=== PATIENT | female | born 1930 | race Caucasian/White ===

== ENCOUNTER → 2017-02-09 | Outpatient (CLI) | payer OTHER | LOC: FIMAGING 14:15 | PROVIDERS: ATTEND Internal Medicine Hematology & Oncology | DX: Z12.31 Encounter for screening mammogram for malignant neoplasm of breast (principal); Z85.3 Personal history of malignant neoplasm of breast | CPT/HCPCS: G0202-52 ==

== ENCOUNTER → 2017-04-06 | Outpatient (CLI) | payer OTHER | LOC: BMCIMAGING 15:35 | PROVIDERS: ATTEND Internal Medicine Rheumatology | DX: S93.302A Unspecified subluxation of left foot, initial encounter (principal) ==

== ENCOUNTER 2017-09-21 10:57 | Inpatient (IN) | payer OTHER ==
--- NOTE | 2017-09-21 11:21 | CPEKG ---
Heart Rate: 60 RR Interval: 1000 P-R Interval: 216 QRSD Interval: 82 QT Interval: 424 QTC Interval: 424 QRS [place]: 32 T Wave [place]: 75 EKG Severity - ABNORMAL ECG - EKG Impression: ATRIAL-PACED RHYTHM EKG Impression: LEFT VENTRICULAR HYPERTROPHY EKG Impression: ANTERIOR Q WAVES, POSSIBLY DUE TO LVH Electronically Signed By: Jonathan Wilson 21-Sep-2017 15:23:47
[2017-09-21 11:27] LABS: PLATELET COUNT 247 10^3/uL (150-400)
--- NOTE | 2017-09-21 11:27 | EDPHY ---
H & P Time Seen by Provider: 09/21/17 11:26 HPI/ROS: Chief complaint. Chest pain This patient was seen by Dr. Banuelos and not by me (Jonathan Wilson) Constitutional: Initial Vital Signs Temperature (C) 36.9 C 09/21/17 11:02 Heart Rate 61 09/21/17 11:02 Respiratory Rate 18 09/21/17 11:02 Blood Pressure 158/66 H 09/21/17 11:02 O2 Sat (%) 96 09/21/17 11:02 O2 Delivery Mode Room Air Allergies/Adverse Reactions: No Known Allergies Allergy (Verified 09/21/17 12:24) Home Medications: Medication Instructions Recorded Aspirin [Aspirin 81mg (OTC)] 81 mg PO HS 05/06/13 Atorvastatin Calcium [Lipitor 10 10 mg PO DAILY 05/06/13 mg (RX)] Calcium Citrate W/Vit D [Citracal 315 mg PO BID 05/06/13 + D (OTC)] Metoprolol Succinate Xr [Toprol Xl 12.5 mg PO HS 05/06/13 25 mg (RX)] Clobetasol 0.05% [Temovate Cream 1 stiven TP DAILY PRN 09/21/17 (RX)] Diclofenac Sodium 1% [Voltaren Gel 1 stiven TP QID PRN 09/21/17 (*)] Herbals/Supplements -Info Only 1 ea PO DAILY 09/21/17 Ibuprofen [Motrin (*)] 200 mg PO BID 09/21/17 Multivitamins [Multivitamin (*)] 1 each PO DAILY 09/21/17 Medical Decision Making ED Course/Re-evaluation: CHIEF COMPLAINT: Pain in the back between the shoulder blades HISTORY OF PRESENT ILLNESS: 86-year-old female with a long history of heart rhythm issues who has never had a heart catheterization. She is presumably scheduled for heart catheterization. She was deciding whether not she would like to proceed and discussing with her daughter lives in [place]. Last night at about 3:00 a.m. she developed severe pain between her shoulder blades into her back. She also had some mild shortness of breath with that. She still having the pain although it is much more mild. She denies any shortness of breath nausea vomiting lightheadedness dizziness syncope or any other symptoms. She does have a paced rhythm as far she can tell her rhythm is not changed. She did call Dr. jessica villasenor office who sent him into the emergency department. REVIEW OF SYSTEMS: A 10 point review of systems was performed and is negative with the exception of the elements mentioned in the history of present illness. PHYSICAL EXAM: HR, BP, O2 Sat, RR. Temp noted General Appearance: Alert, well hydrated, appropriate, and non-toxic appearing. Head: Atraumatic without scalp tenderness or obvious injury Eyes: Pupils equal, round, reactive to light and accommodation, EOMI, no trauma , no injection. Ears: Clear bilaterally, no perforation, normal landmarks Nose: Atraumatic, no rhinorrhea, clear. Throat: There is no erythema or exudates, no lesions, normal tonsils, mucus membranes moist. Neck: Supple, 2+ carotid upstroke, nontender, no lymphadenopathy. Respiratory: No retractions, no distress, no wheezes, and no accessory muscle use. Lungs are clear to auscultation bilaterally. Cardiovascular: Regular rate and rhythm, no murmurs, rubs, or gallops. Bilateral carotid, radial, dorsalis pedis, and posterior tibial pulses intact. Good capillary refill all extremities. Gastrointestinal: Abdomen is soft, nontender, non-distended, no masses, no rebound, no guarding, no peritoneal signs. Musculoskeletal: Normal active ROM of all extremities, atraumatic. Neurological: Alert, appropriate, and interactive. The patient has normal DTRs and non-focal cranial nerves, motor, sensory, and cerebellar exam. Skin: No rashes, good turgor, no nodules on palpation. Past medical history: Atrial fibrillation, pacemaker, hypertension Past surgical history: Pacemaker placed Family history: Noncontributory Social history: , lives on her own, daughter is in [place], denies tobacco drug or alcohol use DIAGNOSTICS/PROCEDURES/CRITICAL CARE TIME: The 12 lead EKG was interpreted by myself. See hard copy and/or "tracemaster" electronic copy for interpretation. Atrial paced rhythm at 60 Study: PA and Lateral Chest X-ray Indication: Chest pain Results: After viewing the images myself on the PACS system. My interpretation of the images is: Atelectasis in left base. The radiologist interpretation is pending at the time of this dictation. DIFFERENTIAL DIAGNOSIS: The differential diagnosis for the patient's back pain included but was not limited to myocardial ischemia, pulmonary embolus, chest wall pain, pleural inflammation, and pulmonary infectious causes. MEDICAL DECISION MAKING: This patient is having pain between her shoulder blades. Her EKG is essentially nondiagnostic as it is an atrial paced EKG. Laboratory studies are pending. This patient is scheduled for heart catheterization and they are just deciding whether not they wanted to proceed. I will discuss this case with Dr. teixeira or coverage and admit to the hospitalist for ongoing pain. Both Dr. Abida Schmitt and Dr. santiago nixon of accepted care of this patient she has been given some nitroglycerin and we are discussing anticoagulation with Dr. Schmitt (Geovanny Banuelos) - Data Points Laboratory Results: Laboratory Results 09/21/17 10:57 09/21/17 10:57 Medications Given: Acetaminophen (Tylenol) 650 mg PO Q4HRS PRN PRN Reason: Pain, Mild/Fever, Can Take PO Stop: 03/20/18 12:14 Last Admin: 09/21/17 18:34 Dose: 650 mg Atorvastatin Calcium (Lipitor) 10 mg PO DAILY NEVIN Stop: 03/21/18 08:59 Last Admin: 09/22/17 08:20 Dose: 10 mg Enoxaparin Sodium (Lovenox) 40 mg SC DAILY NEVIN Stop: 03/21/18 08:59 Last Admin: 09/22/17 08:19 Dose: 40 mg Dextrose/Sodium Chloride (D5w 1/2 Ns) 1,000 mls @ 100 mls/hr IV CONT NEVIN Stop: 03/20/18 12:14 Last Admin: 09/21/17 13:13 Dose: 1,000 mls Metoprolol Succinate (Toprol Xl) 12.5 mg PO HS NEVIN Stop: 03/20/18 20:59 Last Admin: 09/21/17 21:40 Dose: 12.5 mg Miscellaneous Medication (Calcium Citrate W/Vit D [Citracal + D]) 315 mg PO BID NEVIN Stop: 03/20/18 20:59 Last Admin: 09/22/17 08:33 Dose: Not Given Multivitamins (Tab-A-Jessica) 1 each PO DAILY NEVIN Stop: 03/21/18 08:59 Last Admin: 09/22/17 08:20 Dose: 1 each Nitroglycerin (Nitrostat) 0.4 mg SL Q5M PRN PRN Reason: Chest Pain Stop: 03/20/18 12:36 Last Admin: 09/21/17 14:08 Dose: 0.4 mg Oxycodone/Acetaminophen (Percocet 5/325) 1 - 2 tab PO Q4HRS PRN PRN Reason: Pain, Severe Able to Take PO Stop: 10/01/17 17:36 Last Admin: 09/21/17 21:40 Dose: 1 tab Prasugrel (Effient) 5 mg PO DAILY [facility] Stop: 03/21/18 08:59 Last Admin: 09/22/17 08:20 Dose: 5 mg Discontinued Medications Aspirin Buffered (Aspirin Ec) 325 mg PO ONCALL ONE Stop: 09/21/17 14:11 Last Admin: 09/21/17 15:28 Dose: Not Given Diazepam (Valium) 5 mg PO ONCALL ONE Stop: 09/21/17 14:11 Last Admin: 09/21/17 15:28 Dose: Not Given Diphenhydramine HCl (Benadryl) 25 mg PO ONCALL ONE Stop: 09/21/17 14:11 Last Admin: 09/21/17 15:34 Dose: 25 mg Famotidine (Pepcid) 20 mg PO ONCALL ONE Stop: 09/21/17 14:11 Last Admin: 09/21/17 15:34 Dose: 20 mg Sodium Chloride (Ns) 1,000 mls @ 75 mls/hr IV CONT [facility] Stop: 09/22/17 07:04 Last Admin: 09/21/17 20:31 Dose: 1,000 mls Departure - Departure Disposition: [facility] Acute Clinical Impression: Acute coronary syndrome Condition: Fair
[2017-09-21] MEDS ORDERED: D5W 1/2 NS 1,000 ML IV SCH (12:15)
[2017-09-21] MEDS ORDERED: ONDANSETRON DISINTEGRATING 4 MG TAB PO PRN (12:15)
[2017-09-21] MEDS ORDERED: ONDANSETRON 4 MG/2 ML VIAL IVP PRN (12:15)
[2017-09-21] MEDS ORDERED: DICLOFENAC SODIUM 1% 100 GM GEL TP PRN (12:37)
[2017-09-21] MEDS ORDERED: CLOBETASOL 0.05% 15 GM CRTUBE TP PRN (12:37)
--- NOTE | 2017-09-21 12:55 | PDGENHP ---
History and Physical - Chief Complaint Acute back pain - History of Present Illness Primary fire assistant: Dr. Pepe Joe HPI: 86-year-old female presenting with acute back pain characterized as sharp , initially located in the lower back, migrating into the upper midback mid scapular area, with onset of symptoms at 3:30 a.m. and constant duration thereafter. Patient reports mild exacerbation by sitting upright as well as deep inspiration. She took a full-dose aspirin on the morning of this presentation but has not had any subsequent sublingual nitroglycerin. The patient denies ever experiencing similar chest discomfort, and she reports some associated shortness of breath this morning. She reports that her exercise tolerance has been somewhat reduced over the past 1 month, but she has not been experiencing any overt chest pain with exertion. She otherwise denies any URI symptoms, and endorses a chronic nonproductive cough History Information - Allergies/Home Medication List Allergies/Adverse Reactions: No Known Allergies Allergy (Verified 09/21/17 12:24) Home Medications: Aspirin [Aspirin 81mg (OTC)] 81 mg PO HS 05/06/13 [Last Taken 09/21/17] Atorvastatin Calcium [Lipitor 10 mg (RX)] 10 mg PO DAILY 05/06/13 [Last Taken ] Calcium Citrate W/Vit D [Citracal + D (OTC)] 315 mg PO BID 05/06/13 [Last Taken 09/21/17] Metoprolol Succinate Xr [Toprol Xl 25 mg (RX)] 12.5 mg PO HS 05/06/13 [Last Taken 09/20/17] Clobetasol 0.05% [Temovate Cream (RX)] 1 stiven TP DAILY PRN 09/21/17 [Last Taken Unknown] Diclofenac Sodium 1% [Voltaren Gel (*)] 1 stiven TP QID PRN 09/21/17 [Last Taken Unknown] Herbals/Supplements -Info Only 1 ea PO DAILY 09/21/17 [Last Taken Unknown] Ibuprofen [Motrin (*)] 200 mg PO BID 09/21/17 [Last Taken 09/21/17 08:30] Multivitamins [Multivitamin (*)] 1 each PO DAILY 09/21/17 [Last Taken 09/21/17] I have personally reviewed and updated: family history, medical history, social history, surgical history - Past Medical History Additional medical history: Moderate aortic insufficiency and back stenosis, currently being evaluated for TAVR. Hypertension. Diastolic dysfunction - Surgical History Additional surgical history: Permanent pacemaker for Mobitz type 2 in 2011. Left mastectomy with implant. Right femur ORIF in 2010 - Family History Additional family history: Father with myocardial infarction at age 70, no family history of venous thromboembolism - Social History Smoking Status: Former smoker (Room history) Alcohol Use: Occasionally Drug Use: None Additional social history: Resides at [facility] Review of Systems Review of Systems: ROS: 10pt was reviewed & negative except for what was stated in HPI & below Cardiac: Reports: chest pain Respiratory: Reports: shortness of breath Physical Exam Physical Exam: Temp Pulse Resp BP Pulse Ox 36.9 C 66 18 119/63 95 09/21/17 11:02 09/21/17 12:00 09/21/17 12:00 09/21/17 12:00 09/21/17 12:00 Constitutional: no apparent distress, appears nourished, not in pain Eyes: PERRL, anicteric sclera, EOMI Ears, Nose, Mouth, Throat: hearing normal, ears appear normal, other (Tacky mucous membranes) Cardiovascular: systolic murmur (3/6 at the right sternal border), No irregularly irregular, No tachycardia, No edema Respiratory: reduced air movement (Poor inspiratory effort), inspiratory crackles (Left posterior base), No expiratory wheeze, No bronchial breath sounds Gastrointestinal: normoactive bowel sounds, soft, non-tender abdomen, no palpable masses, No distension Skin: other (No vesicular lesions or rash over the left anterior chest or left back) Musculoskeletal: other (No tenderness to palpation over the thoracic or cervical spine, full range of motion left shoulder without any pain, no tenderness to palpation of the left pectoralis muscle) Neurologic: AAOx3, sensation intact bilaterally, No weakness Psychiatric: interacting appropriately, not anxious, not encephalopathic, thought process linear Lab Data & Imaging Review 09/21/17 10:57 09/21/17 10:57 WBC 11.43 10^3/uL (3.80-9.50) H 09/21/17 10:57 RBC 4.37 10^6/uL (4.18-5.33) 09/21/17 10:57 Hgb 14.2 g/dL (12.6-16.3) 09/21/17 10:57 Hct 41.0 % (38.0-47.0) 09/21/17 10:57 MCV 93.8 fL (81.5-99.8) 09/21/17 10:57 MCH 32.5 pg (27.9-34.1) 09/21/17 10:57 MCHC 34.6 g/dL (32.4-36.7) 09/21/17 10:57 RDW 14.0 % (11.5-15.2) 09/21/17 10:57 Plt Count 247 10^3/uL (150-400) 09/21/17 10:57 MPV 9.5 fL (8.7-11.7) 09/21/17 10:57 Neut % (Auto) 81.3 % (39.3-74.2) H 09/21/17 10:57 Lymph % (Auto) 7.8 % (15.0-45.0) L 09/21/17 10:57 [place] % (Auto) 10.0 % (4.5-13.0) 09/21/17 10:57 Eos % (Auto) 0.3 % (0.6-7.6) L 09/21/17 10:57 Baso % (Auto) 0.3 % (0.3-1.7) 09/21/17 10:57 Nucleat RBC Rel Count 0.0 % (0.0-0.2) 09/21/17 10:57 Absolute Neuts (auto) 9.30 10^3/uL (1.70-6.50) H 09/21/17 10:57 Absolute Lymphs (auto) 0.89 10^3/uL (1.00-3.00) L 09/21/17 10:57 Absolute Monos (auto) 1.14 10^3/uL (0.30-0.80) H 09/21/17 10:57 Absolute Eos (auto) 0.03 10^3/uL (0.03-0.40) 09/21/17 10:57 Absolute Basos (auto) 0.04 10^3/uL (0.02-0.10) 09/21/17 10:57 Absolute Nucleated RBC 0.00 10^3/uL (0-0.01) 09/21/17 10:57 Immature Gran % 0.3 % (0.0-1.1) 09/21/17 10:57 Immature Gran # 0.03 10^3/uL (0.00-0.10) 09/21/17 10:57 Sodium 141 mEq/L (135-145) 09/21/17 10:57 Potassium 4.8 mEq/L (3.5-5.2) 09/21/17 10:57 Chloride 107 mEq/L (97-110) 09/21/17 10:57 Carbon Dioxide 20 mEq/l (22-31) L 09/21/17 10:57 Anion Gap 14 mEq/L (8-16) 09/21/17 10:57 BUN 23 mg/dL (7-23) 09/21/17 10:57 Creatinine 0.7 mg/dL (0.6-1.0) 09/21/17 10:57 Estimated GFR > 60 09/21/17 10:57 Glucose 115 mg/dL (70-100) H 09/21/17 10:57 Calcium 10.4 mg/dL (8.5-10.4) 09/21/17 10:57 Troponin I < 0.012 ng/mL (0.000-0.034) 09/21/17 10:57 Visualized and Interpreted Chest x-ray results: Yes Chest X-Ray results: other (Possible left lower lobe infiltrate) Visualized and Interpreted EKG results: Yes EKG Interpretation: Positive for: other (Paced rhythm) Assessment & Plan Assessment: 86-year-old female presents with acute back pain Plan: 1. Back pain. Acute, new problem this provider, further workup indicated. Possible etiologies include unstable angina versus acute pulmonary embolism verses pneumonia versus GERD. Given patient's leukocytosis I suspect that the patient has either onset angina or embolism or pneumonia. -reviewed outside records including 05/08/[address] Madelaine Moreno, reports that patient's echo had diastolic dysfunction, normal ejection fraction, moderate aortic insufficiency and aortic stenosis, mild mitral regurgitation, nuclear stress test with fixed anteroseptal defect but no ischemia -discussed with Dr. Geovanny Banuelos, he has discussed the case with Dr. Abida Schmitt , he reports to me that she liked the patient kept NPO for catheterization today -will discuss with Dr. Schmitt whether systemically anticoagulated patient for treatment of possible unstable angina -discussed with Dr. Geovanny Banuelos, I recommend to him that the patient received supple nitroglycerin at this time, the morphine that her pain is unrelieved -keep on a low rate IV fluids NPO -get D-dimer rule out pulmonary embolism -she has received full-dose aspirin today, has long-acting oral beta-manju for this evening, but can receive sooner if so desired by Cardiology-if all the above is unremarkable, then would recommend noncontrast CT of the chest to evaluate for left lower lobe pneumonia 2. Hypertension. Continue home beta-manju 3. Aortic stenosis and insufficiency. Will get cardiac catheterization today, evaluate given patient's consideration of TAVR Diet. NPO, IV fluids next prophylaxis. High risk patient, Lovenox 40 Code. Full per patient, daughter is MD UMANZOR Disposition. Anticipated discharge is 09/22, pending further workup as outlined above.
[2017-09-21] MEDS: ACETAMINOPHEN 325 MG TAB PO PRN ×2 (13:07→18:34)
[2017-09-21] MEDS: NITROGLYCERIN 0.4 MG BTL SL PRN ×2 (13:42→14:08)
[2017-09-21] MEDS ORDERED: FAMOTIDINE 20 MG TAB PO ONE (14:10)
[2017-09-21] MEDS ORDERED: diphenhydrAMINE 25 MG CAP PO ONE ×2 (14:10→15:31)
[2017-09-21] MEDS ORDERED: ASPIRIN EC 325 MG TAB PO ONE (14:10)
[2017-09-21] MEDS ORDERED: DIAZEPAM 5 MG TAB PO ONE (14:10)
[2017-09-21] MEDS ORDERED: TEMAZEPAM 15 MG CAP PO PRN (14:10)
[2017-09-21] MEDS ORDERED: NS 1,000 ML IV SCH ×2 (14:15→17:45)
--- NOTE | 2017-09-21 14:21 | PDPROPOC ---
Sedation Plan of Care Sedation Plan of Care: vital signs stable, mental status noted, patient educated of risks, benefits, alternatives, patient can tolerate sedation ASA Classification: ASA 2 Planned drugs: fentanyl, midazolam Mallampati Score: Class 2 Mallampati Reference Image: Patient passed 3-3-2 rule?: Yes
--- NOTE | 2017-09-21 14:21 | PDHPUP ---
History & Physical Update H&P update statement: This history and physical update is based on an assessment of the patient which was completed after admission or registration (within 24 hours), but prior to the surgery/procedure. H&P update: H&P reviewed & patient examined, no change in patient's condition since H&P completed
[2017-09-21] MEDS ORDERED: LIDOCAINE 1% 300 MG/30 ML SDV ONE (15:00)
[2017-09-21] MEDS ORDERED: IOPAMIDOL (ISOVUE-370) 150 ML BTL IV ONE ×2 (15:00→16:46)
[2017-09-21] MEDS ORDERED: fentaNYL 100 MCG/2 ML INJ ONE (15:00)
[2017-09-21] MEDS ORDERED: MIDAZOLAM 2 MG/2 ML VIAL ONE (15:00)
[2017-09-21 15:33] LABS: INR 0.96 (0.83-1.16)
--- NOTE | 2017-09-21 16:05 | ECHO ---
[email or web address] [address] Main: [phone] Fax: Transthoracic Echocardiogram Name: TREVER QUINN MR#: [id number] Study Date: 09/21/2017 Study Time: 02:55 PM Date of : 1930 Age: 86 year(s) Height: 152.4 cm (60 in.) Weight: 47.17 kg (104 lb.) BSA: 1.41 m2 Gender: Female Examination: Echo Indication: , CP Image Quality: Technically Difficult Contrast: Requested by: Abida Schmitt BP: 156 mmHg/82 mmHg Heart Rate: Rhythm: Pacemaker rhythm Indication: , CP Procedure Staff Vice President Of Nursing: Janae Taylor Reading Physician: Abida Schmitt Requesting Provider: Conclusions: Normal size left ventricle. Mild concentric LV hypertrophy. Normal global systolic LV function. EF is 76 %. No regional wall motion abnormality. Normal size right ventricle. Normal RV function. The left atrium is mildly dilated. Severe aortic valve calcification is present. Bright mobile echo noted on the aorta side of the non-coronary cusp. Moderate aortic valve regurgitation is present. Mean aortic valve gradient 61. Severe calcific aortic valve stenosis. Mild to moderate tricuspid valve regurgitation. Right ventricular systolic pressure measures 32mmHg. Mild pulmonic valve regurgitation is noted. Normal size aortic root measuring 2.5 cm. Normal size ascending aorta measuring 3.3 cm. Compared wt 04/02/2016 mean aortic valve gradients have increased Measurements: Chambers Valvular Assessment AV/MV Valvular Assessment TV/PV Normal Normal Normal Name Value Range Name Value Range Name Value Range Ao Estella (MM): 2.5 cm (2.2 cm-3.7 AV Vmax: 4.91 m/s (1 m/s-1.7 TR Vmax: 2.62 mm/s ( - ) cm) m/s) TR PGmax: 27 mmHg ( - ) IVSd (2D): 0.9 cm (0.6 cm-1.1 AV maxP mmHg ( - ) syst. PAP: 32 mmHg ( - ) cm) AV meanP mmHg ( - ) PV Vmax: 0.82 m/s (0.6 m/s-0.9 LVDd (2D): 3.4 cm (3.9 cm-5.3 LVOT Vmax: 1.03 m/s (0.7 m/s-1.1 m/s) cm) m/s) Patient: TREVER QUINN Study Date: 09/21/2017 Page 1 of 2 02:55 PM LVDs (2D): 2.0 cm (2.1 cm-4 LITO (Vmax): 0.5 cm2 ( - ) PV PGmax: 3 mmHg ( - ) cm) LITO (VTI): 0.6 cm ( - ) LVPWd (2D): 1.0 cm ( - ) AR (PHT): 479 ms ( - ) LVOTd 1.8 cm 1.8 cm mm MV E Vmax: 0.70 m/s ( - ) LVEF (MOD4): 76 % (>=55 %) MV A Vmax: 0.81 m/s ( - ) MV E/A: 0.86 ( - ) Continued Measurements: Chambers Valvular Assessment AV/MV Valvular Assessment TV/PV Name Value Name Value Name Value LADs Lon.1 cm MV DecTime: 225 m/s CVP (est.): 5 mmHg LA Area: 16.4 cm2 AR Vmax: 3.59 cm/s LA Volume: 48 ml LA Volume Index: 34.0 ml/m2 RA Area: 13.9 cm2 Additional Vessels Name Value Ao Ascendin.3 cm Findings: Left Ventricle: Normal size left ventricle. Mild concentric LV hypertrophy. Normal global systolic LV function. EF is 76 %. No regional wall motion abnormality. Right Ventricle: Normal size right ventricle. Normal RV function. Left Atrium: The left atrium is mildly dilated. Right Atrium: The right atrium is normal in size. Mitral Valve: There is mild thickening of the mitral valve leaflets. Trivial mitral valve regurgitation. No mitral stenosis is present. Aortic Valve: Cannot rule out bicuspid aortic valve. Severe aortic valve calcification is present. Bright mobile echo noted on the aorta side of the non-coronary cusp. Moderate aortic valve regurgitation is present. Mean aortic valve gradient 61. Severe calcific aortic valve stenosis. Tricuspid Valve: The tricuspid valve appears normal. Mild to moderate tricuspid valve regurgitation. Right ventricular systolic pressure measures 32mmHg. Pulmonic Valve: Pulmonary valve not well visualized. Mild pulmonic valve regurgitation is noted. Aorta: Normal size aortic root measuring 2.5 cm. Normal size ascending aorta measuring 3.3 cm. Pericardium: No pericardial effusion. (No Signature Object) Patient: TREVER QUINN Study Date: 09/21/2017 Page 2 of 2 02:55 PM [id number]
[2017-09-21] MEDS ORDERED: BIVALIRUDIN 250 MG/5 ML VIAL IV ONE (16:41)
--- NOTE | 2017-09-21 16:56 | PDDXCAT ---
Diagnostic Cath Note - . Date: 09/21/17 Infrastructure Architect: Oskar Indication: other (unstable angina. Pre TAVR) - Procedure Access: left groin Procedure: left heart catheterization, coronary angiography - Materials Left Heart Cath size: 6F Left Heart Cath materials: JL4.0, Elton's R - Findings-Left Heart Catheterization LM: long with minimal tapering at the bifurcation of the LAD and Lcx. No flow limiting stenosis. LAD: 2 large branching diagonals. The diagonal branches are free of significant disease. The mid LAD has an 80% stenosis LCX: small. No significant disease RCA: dominant. No significant disease LVEF: did not cross aortic valve due to known severe calcific - Findings-Right Heart Catheterization AO: 131/52 Complications: none Estimated blood loss: <50ml Closure method: manual pressure Assessment: Single vessel LAD disease in a patient with known severe . Plan: Interventional consult with Dr. Beasley for PCI of mid LAD Patient Problems: Problems Problem Status Onset Acute coronary syndrome Acute
[2017-09-21] MEDS ORDERED: NITROGLYCERIN 1,500 MCG/15 ML VIAL MISC ONE (17:05)
[2017-09-21] MEDS ORDERED: CLOPIDOGREL BISULFATE 75 MG TAB ONE (17:18)
[2017-09-21] MEDS ORDERED: ATROPINE SULFATE 1 MG/10 ML SYR IVP PRN (17:37)
[2017-09-21] MEDS ORDERED: PRASUGREL HCL 10 MG TAB PO ONE (17:37)
--- NOTE | 2017-09-21 17:54 | PDDXCAT ---
Diagnostic Cath Note - . Date: 09/21/17 Carton Stapler: Ramos - Procedure Access: left groin - Materials Left Heart Cath size: 6F Complications: None Estimated blood loss: <50ml Closure method: manual pressure Intervention: Please refer to the diagnostic cardiac cath report dictated by Dr. Abida Schmitt. Briefly, the patient is an 86-year-old woman with severe aortic stenosis who is being evaluated for TAVR. She presented with back discomfort concerning for an anginal equivalent. Diagnostic cardiac catheterization demonstrated that her only significant coronary lesion was an 80% stenosis in the mid left anterior descending. Based on her anatomy and plans for an upcoming TAVR, the decision was made to perform percutaneous coronary intervention. The patient received intravenous Angiomax. A 6 [place] CLS 3.5 guide catheter was advanced to the left main. An Intuition guidewire was advanced to the apical portion of the left anterior descending. Predilatation of the target lesion was performed using a 2.25 x 12 mm Emerge balloon. A 2.5 x 16 mm Synergy stent was advanced into position and deployed at high pressure. Subsequent angiograms demonstrate stenosis/haziness at each end of the stent. Intracoronary nitroglycerin was given. Subsequent angiography demonstrated that the distal stent end looked good. However, there was a napkin ring type stenosis at the proximal end of the stented segment. Therefore, a 2.75 x 8 mm Synergy stent was advanced into position and was deployed proximal to the first stent with slight overlap. An additional high pressure inflation was performed at the overlap segment. Subsequent angiography demonstrated that the stented segment had 0% residual stenosis. There was some haziness at the proximal stent end. Therefore postdilatation was performed at the proximal end of the stented segment using a 3.0 x 8 mm .NC Emerge balloon. Final angiograms demonstrated 0% residual stenosis with minimla haziness at the proximal stent end. The decision was made to terminate the procedure at this point where as working any further proximally could jeopardize a very large bifurcated diagonal branch. Patient Problems: Problems Problem Status Onset Acute coronary syndrome Acute
--- NOTE | 2017-09-21 18:27 | CPEKG ---
Heart Rate: 70 RR Interval: 857 P-R Interval: 204 QRSD Interval: 86 QT Interval: 404 QTC Interval: 436 P [place]: 86 QRS [place]: 38 T Wave [place]: 46 EKG Severity - ABNORMAL ECG - EKG Impression: SINUS RHYTHM EKG Impression: FIRST DEGREE AV BLOCK EKG Impression: LEFT VENTRICULAR HYPERTROPHY EKG Impression: COMPARED WITH 09/21/2017 AT 11:19, A PACING NOW ABSENT Electronically Signed By: Abida Schmitt 21-Sep-2017 19:50:08
--- NOTE | 2017-09-21 20:19 | GCON ---
[f rep st] CONSULTATION DATE OF CONSULTATION: 09/21/2017 PRIMARY CARDIOLOGISTS: Dr. Pepe Joe and Dr. Duc Schmidt. CHIEF COMPLAINT: Chest pain. HISTORY OF PRESENT ILLNESS: We were asked by Dr. Salazar to visit with the patient. The patient is a pleasant 86-year-old female with valvular heart disease. She does have severe aortic valvular steno sis as well as moderate aortic regurgitation based on 2016 echo. Other history includes paroxysmal a trial flutter, paroxysmal atrial fibrillation for which she has declined systemic anticoagulation, pe rmanent pacemaker, kzw-hjws-ibdtmmzi coronary disease on the basis of an angiogram in 2008, rheumatoi d arthritis, systemic hypertension. She has recently seen Dr. Joe, Dr. Schmidt, and Dr. New for further evaluation and management of her aortic stenosis and decreased exercise tolerance. She has been turned down by Dr. New for s urgical aortic valve replacement and the plan was to proceed with diagnostic coronary angiogram and u ltimately transaortic valve replacement with Dr. Schmidt. The patient woke at 3 this morning with middle back and mid and upper back chest discomfort unlike an ything she has ever had before. This was somewhat pleuritic in nature. She did not feel short of br eath, per se. She did not have syncope or palpitations. She has not had problems with lower extremi ty edema, paroxysmal nocturnal dyspnea, or orthopnea. She does corroborate the fact that she has had a decline in exercise tolerance, having to stop more frequently on her usual walks due to fatigue an d dyspnea. Because of her upper back/interscapular discomfort, she presented to the ER. First troponin is negat catherine. EKG shows LVH without significant ischemic changes. She received 1 sublingual nitroglycerin wi th improvement. She is now admitted for observation. REVIEW OF SYSTEMS: A full 10-point Review of Systems performed is negative except that which is outl ined in History of Present Illness. ALLERGIES: No known drug allergies. PAST MEDICAL HISTORY: 1. Valvular heart disease. 2. Permanent pacemaker. 3. Paroxysmal atrial arrhythmias for which she has declined anticoagulation. 4. Oac-jkqp-qpztwfmg coronary disease. 5. Hypertension. 6. Rheumatoid arthritis. 7. History of left mastectomy/left breast implant/XRT to left chest. 8. Status post right femur fracture with ORIF. 9. dyslipidemia. OUTPATIENT MEDICATIONS: Atorvastatin 10 mg daily, metoprolol tartrate 12.5 mg once daily, aspirin 81 mg daily, and Tylenol. SOCIAL HISTORY: The patient lives in the [facility]. Her daughter and son are involved in her care. She is a past cigarette smoker. FAMILY HISTORY: Not applicable to current case. PHYSICAL EXAM: VITAL SIGNS: Blood pressure is 156/52, heart rate 66, oxygen saturation 95% on room air. She is afebrile. GENERAL: Well-appearing, but somewhat frail older female in no acute distres s. HEENT: Sclerae clear and free of jaundice. Mucous membranes moist. CARDIOVASCULAR: JVP is less than 10. Carotids are equal and 2+ bilaterally with radiated murmur to the neck. Regular rate and rhythm with a 3/6 mid-to-late peaking systolic ejection murmur heard throughout the precordium. LUNG S: Mild rales at the left base. Otherwise, lungs are clear without wheezes or rhonchi. ABDOMEN: S oft, nontender, nondistended without bruits, masses, or hepatosplenomegaly. EXTREMITIES: Warm and w ell perfused without cyanosis, clubbing, or edema. NEURO: Alert and oriented x3 without gross focal neurologic deficits. LABORATORY DATA: White count 11.43 with a slight left shift. Hematocrit 41, and platelets are 247. D-dimer 0.53. Sodium 141, potassium 4.8, chloride 107, bicarb 20, BUN 22, creatinine 0.7, and glucos e is 115. First troponin is negative. EKG, reviewed by me: Atrial pacing. LVH with associated repolarization abnormality in the lateral l rashad. She also has minimal and diffuse concave ST-elevation in other leads, possibly suggestive of p ericarditis. Echocardiogram 2016, reviewed by me, shows normal LV systolic function without regional wall motion a bnormality. Severe aortic stenosis. Chest x-ray, reviewed by me: Left basilar opacity. This could be atelectasis or pneumonia. Cardiom egaly. Visualized portions of the ascending aorta appeared normal in caliber. Moderate hiatal herni a. ASSESSMENT/PLAN: 86-year-old female with known severe aortic stenosis, permanent pacemaker, intermit tent atrial arrhythmias, presents with upper back discomfort. This could be related to acute coronar y syndrome, musculoskeletal, less likely aortic pathology, pulmonary embolus is also possible. 1. Chest pain: Given her ongoing discomfort with some relief with nitroglycerin, we will proceed wi th diagnostic coronary angiogram with possible intervention. I have discussed this with Dr Travis Schmidt. If she does not have significant coronary disease, we will proceed likely tomorrow, depen ding on her contrast load with her pre-transcatheter aortic valve replacement CT scans, which would a lso evaluate for pulmonary embolism. I have checked an ESR and CRP in case this is viral pleurisy/pe ricarditis. Continue beta-manju and aspirin. 2. Valvular heart disease, severe aortic stenosis and moderate aortic regurgitation: Repeat echocar diogram. It has been over a year since her last study. She does appear to be a candidate for transc atheter aortic valve replacement and not a candidate for open surgical aortic valve replacement. 3. Paroxysmal atrial fibrillation and paroxysmal atrial flutter: She is currently paced. In the tpatient setting, she has previously declined systemic anticoagulation per Dr. Joe's notes. We can discuss further after her coronary angiogram and transcatheter aortic valve replacement. 4. Elevated white count and mildly abnormal chest x-ray: She has no subjective signs of pneumonia. Will follow closely. Defer to Hospital Medicine. At this point, she does not seem to require antib iotics. 5. Rheumatoid arthritis: This appears to be somewhat quiescent. Thank for allowing us to participate in the patient's care. Will follow with you. /[id number]/MODL
[2017-09-21] MEDS: OXYCODONE/APAP 5/325 TAB PO PRN ×2 (20:29→21:40)
[2017-09-21] MEDS: METOPROLOL SUCCINATE XR 25 MG TAB PO SCH (21:40)
[2017-09-21] MEDS: VIT D PO SCH (21:56)
[2017-09-21] MEDS: CALCIUM CITRATE PO SCH (21:56)
[2017-09-22 04:48] LABS: PLATELET COUNT 194 10^3/uL (150-400)
[2017-09-22] MEDS: ENOXAPARIN 40 MG/0.4 ML SYR SC SCH (08:19)
[2017-09-22] MEDS: PRASUGREL HCL 5 MG TAB PO SCH ×2 (08:20→12:04)
[2017-09-22] MEDS: ATORVASTATIN CALCIUM 10 MG TAB PO SCH (08:20)
[2017-09-22] MEDS: MULTIVITAMINS 1 EACH TAB PO SCH (08:20)
[2017-09-22] MEDS: VIT D PO SCH ×2 (08:33→21:41)
[2017-09-22] MEDS: CALCIUM CITRATE PO SCH ×2 (08:33→21:41)
[2017-09-22] MEDS ORDERED: Herbals/Supplements -Info Only PO SCH (09:00)
--- NOTE | 2017-09-22 09:04 | CPEKG ---
Heart Rate: 67 RR Interval: 896 P-R Interval: 198 QRSD Interval: 92 QT Interval: 516 QTC Interval: 545 P [place]: 225 QRS [place]: 25 T Wave [place]: 29 EKG Severity - ABNORMAL ECG - EKG Impression: ATRIAL-PACED COMPLEXES EKG Impression: LEFT VENTRICULAR HYPERTROPHY EKG Impression: ANTERIOR Q WAVES, POSSIBLY DUE TO LVH EKG Impression: PROLONGED QT INTERVAL EKG Impression: COMPARED WITH 09/21/2017 AT 18:25 ATRIAL PACING NOW PRESENT Electronically Signed By: Abida Schmitt 22-Sep-2017 18:15:36
--- NOTE | 2017-09-22 10:52 | PDCARPN ---
Cardiology Progress Note Assessment/Plan: Assessment/plan: 86-year-old female with severe aortic stenosis (mean gradient 61 mm of mercury) and moderate aortic regurgitation. She has permanent pacemaker, paroxysmal atrial arrhythmias, rheumatoid arthritis as well as hypertension dyslipidemia. She was admitted September 21 with interscapular discomfort concerning for angina. She underwent coronary angiography demonstrating 80% mid LAD lesion that was treated by Dr. Logan Beasley with to synergy stents. Echocardiogram confirms severe aortic stenosis, moderate aortic regurgitation, cvkd-nx-uiivnbva tricuspid regurgitation, normal biventricular systolic function. 1. Valvular heart disease: She has been evaluated for TAVR She is not a candidate for surgical aortic valve replacement, per Dr. Logan New. Follow up with Dr. Schmidt. She has had her pre procedure carotid ultrasound and will also get preTAVR CT scans today. 2. Coronary disease: Status post PCI of the LAD on September 21. She appears stable with resolution of what was likely an anginal equivalent. Left femoral arteriotomy site is stable. She has been started on Effient and aspirin. Continue statin and beta-manju. Plavix genetic testing was ordered. 3. Hypertension: Well controlled. Continue beta-manju 4. Permanent pacemaker and intermittent atrial fibrillation. She has previously declined systemic anticoagulation. This can be readdressed post TAVR 5. Non flow-limiting carotid disease seen on recent ultrasound. Continue aspirin statin. 6. Slightly elevated white count: This has improved since admission. No obvious infectious issues. This should be repeated as an outpatient. 7. Dyslipidemia: Continue statin. LDL is at goal. As mentioned above, she may be discharged home after her CT scans are completed. 09/22/17 11:10 Subjective: Sherley has had resolution of the upper back discomfort that brought her into the hospital. She has no chest pain. She denies dyspnea or lightheadedness. No significant left groin discomfort. Reviewed/Discussed With: hospitalist (Dr. Logan Beasley) Objective: Vital Signs (8 Hrs) Temp Pulse Resp BP Pulse Ox 09/22/17 07:14 36.6 C 73 18 123/48 H 93 09/22/17 04:34 36.6 C 66 16 117/53 L 96 Intake/Output (24 Hrs) 09/21/17 09/22/17 09/23/17 05:59 05:59 05:59 Intake Total 250 Output Total 200 Balance 50 Intake: Oral (ml) 250 IV Infused (ml) 0 Output: Urine (ml) 200 Toilet 200 Other: Weight 46.3 kg Number of Voids Bedpan 1 Toilet 1 No acute distress. JVP less than 10 cm of water. Regular rate and rhythm with harsh 2/6 late peaking systolic ejection murmur heard throughout the precordium Lungs clear auscultation without wheeze rhonchi or rales Extremities warm well perfused without cyanosis clubbing edema Left femoral arteriotomy site clean dry and intact. Expected small ecchymoses. No hematoma or bruit. Result Diagrams: 09/22/17 04:10 09/22/17 04:10 Telemetry: Sinus rhythm. Intermittent atrial pacing. PACs. Echocardiogram: reviewed, please see report signed by me ICD10 Worksheet Patient Problems: Problems Problem Status Onset Acute coronary syndrome Acute
[2017-09-22] MEDS ORDERED: IOPAMIDOL (ISOVUE 370) 100 ML BTL IV ONE (13:20)
[2017-09-22] MEDS: ACETAMINOPHEN 325 MG TAB PO PRN (15:52)
--- NOTE | 2017-09-22 16:32 | CPEKG ---
Heart Rate: 81 RR Interval: 741 QRSD Interval: 86 QT Interval: 364 QTC Interval: 423 QRS [place]: 11 T Wave [place]: -24 EKG Severity - ABNORMAL ECG - EKG Impression: AFIB/FLUT AND V-PACED COMPLEXES EKG Impression: ST DEPRESSION INFERIOR LEADS EKG Impression: ST ELEVATION, LATERAL LEADS. ACUTE ST ELEVATION DC EKG Impression: COMPARED WITH 09/22/2017, V PACING NOW SEEN. LATERAL ST ELEVATION NOW SEEN Electronically Signed By: Abida Schmitt 22-Sep-2017 18:14:19
--- NOTE | 2017-09-22 17:05 | ASMTCMCOM ---
CM Note CM Note Notes: 09/22/2017 Case Management Note Discussed in rounds. Pt plans for TAVR next week. Ambulates well. There were no case management d/c needs identified. Case Management anticipates pt to d/c independent with follow up as directed. Date Signed: 09/22/2017 05:04 PM Electronically Signed By:Chanel Henao RN
[2017-09-22] MEDS ORDERED: LIDOCAINE 1% 300 MG/30 ML SDV ONE (17:07)
[2017-09-22] MEDS ORDERED: IOPAMIDOL (ISOVUE-370) 150 ML BTL IV ONE ×3 (17:07→18:40)
[2017-09-22] MEDS ORDERED: fentaNYL 100 MCG/2 ML INJ ONE (17:07)
[2017-09-22] MEDS ORDERED: MIDAZOLAM 2 MG/2 ML VIAL ONE (17:07)
[2017-09-22] MEDS: NITROGLYCERIN 0.4 MG BTL SL PRN (17:11)
[2017-09-22] MEDS ORDERED: BIVALIRUDIN 250 MG/5 ML VIAL IV ONE (17:30)
[2017-09-22] MEDS ORDERED: NITROGLYCERIN 1,500 MCG/15 ML VIAL MISC ONE (17:30)
[2017-09-22] MEDS ORDERED: ABCIXIMAB 10 MG/5 ML VIAL ONE (18:30)
[2017-09-22] MEDS ORDERED: CLOPIDOGREL BISULFATE 75 MG TAB ONE (19:18)
[2017-09-22] MEDS ORDERED: NS 1,000 ML IV SCH (19:30)
--- NOTE | 2017-09-22 19:47 | HOSPPROG ---
Hospitalist Progress Note Assessment/Plan: Assessment: 86-year-old female presents with acute coronary syndrome and subsequent STEMI Plan: # Acute coronary syndrome. POA, evidenced by 80% LAD lesion w/ leukocytosis, back pain as presenting anginal sx - stented by Dr. Beasley 09/21 - placed on ASA/effient/bblocker # STEMI. Recurrent back pain and evolving shoulder pain as anginal sx w/ EKG demonstrating STEMI and trop 0.5 - d/w Dr. Rios/Oskar, initial stent placed to the Diag which was the likely cause of the STEMI, possibly 2/2 plaque embolizing off the Diag/LAD junction, then w/ mid LAD plaque embolization distal to the original LAD stents, requiring balloon and aggressive stenting w/ acute V. Fib and hypotension during procedure - adjusted to ASA/Plavix/bblocker - patient pain free post-procedure in ICU - d/w Dr. Alexandre, EKG rec if any back/shoulder/chest pain # Hypertension. Continue home beta-manju # Aortic stenosis and insufficiency. Will likely require some delay in TAVR given severity of above - staging CUS/CTA w/o remarkable findings Diet. IVF, adv when able to sit upright Prophylaxis. High risk patient, Lovenox 40 Code. Full per patient, daughter is MD POA Disposition. Anticipated discharge is uncertain, upgraded to inpatient admission status re: anticipated LOS > 48hrs for reasonable medical necessity including STEMI. 45 minutes of critical care time w/ this patient, at bedside, coordinating care w/ the above providers, addressing her critical illness which places her at high risk of mortality (STEMI). Subjective: patient w/ back pain, shoulder pain pre-cath / no pain post-cath Objective: Vital Signs Temp Pulse Resp BP Pulse Ox 36.3 C 75 16 96/63 L 96 09/22/17 15:48 09/22/17 17:00 09/22/17 15:48 09/22/17 17:00 09/22/17 17:00 Laboratory Results 09/22/17 04:10 09/22/17 04:10 09/21/17 09/22/17 09/23/17 05:59 05:59 05:59 Intake Total 250 495 Output Total 200 780 Balance 50 -285 PT 13.0 SEC (12.0-15.0) 01/22/18 14:55 INR 0.96 (0.83-1.16) 09/21/17 14:55 - Physical Exam Constitutional: no apparent distress, not in pain, No uncomfortable Cardiovascular: regular rate and rhythym, systolic murmur (III/ at RSB), No tachycardia, No edema Respiratory: no respiratory distress, no rales or rhonchi, clear to auscultation Neurologic: AAOx3 Psychiatric: interacting appropriately, not anxious, not encephalopathic, thought process linear ICD10 Worksheet Patient Problems: Problems Problem Status Onset Acute coronary syndrome Acute
[2017-09-22] MEDS ORDERED: ASPIRIN 81 MG CHEWABLE TAB PO SCH (21:00)
--- NOTE | 2017-09-22 21:29 | CPEKG ---
Heart Rate: 73 RR Interval: 822 P-R Interval: 192 QRSD Interval: 96 QT Interval: 404 QTC Interval: 446 P [place]: 77 QRS [place]: 58 T Wave [place]: 82 EKG Severity - ABNORMAL ECG - EKG Impression: ATRIAL-PACED COMPLEXES EKG Impression: ST ELEVATION, PROBABLE LATERAL INJURY EKG Impression: PROBABLE ANTEROSEPTAL INFARCT, AGE INDETERM EKG Impression: COMPARED WITH 09/22/2017 AT 16:30, DUANE IMPROVED Electronically Signed By: Abida Schmitt 23-Sep-2017 14:26:09
[2017-09-22] MEDS: METOPROLOL SUCCINATE XR 25 MG TAB PO SCH (22:15)
--- NOTE | 2017-09-23 04:45 | CPIP ---
[f rep st] INVASIVE CARDIAC PROCEDURE DATE OF PROCEDURE: 09/22/2017 PROCEDURE PERFORMED: 1. Coronary catheterization. 2. Selective coronary angiography. 3. Percutaneous transluminal coronary angioplasty and stent placement of the diagonal with a 2.5 x 1 6 Synergy drug-eluting stent. 4. Percutaneous transluminal coronary angioplasty and stent placement of the proximal LAD with a 3.0 x 16 Synergy drug-eluting stent. 5. Percutaneous transluminal coronary angioplasty and stent placement of the distal LAD with a 2.25 x 16 Synergy stent. Stenting of the mid LAD with a 2.25 x 16 Synergy drug-eluting stent and stenting of the most distal LAD with a 2.25 x 8 Synergy drug-eluting stent. COMPLICATIONS: LAD subacute stent thrombosis. INDICATION/APPROPRIATE USE CRITERIA: Lula presented with an acute lateral myocardial infarction which was an ST-elevation LA occurring just before she left the telemetry floor to go home from an e lective stent procedure of her LAD yesterday. PROCEDURE IN DETAIL: After implied consent was obtained because of the emergent nature of the proced ure and the patient's sedated status, she was taken emergently to the catheterization laboratory. I was asked to come and see the patient as I was on-call for intervention. A 6-Belgian sheath was place d using a micropuncture set after the groin was prepped and draped in sterile fashion. We then place d a 6-Belgian short sheath followed by 6-Belgian longer sheath given the tortuosity in the right iliac. A braided longer sheath was utilized. We then went up with a Tyler right diagnostic catheter to selectively inject the right coronary artery. The right coronary artery was noted to be dominant gi ving rise to the posterior descending as well as 2 posterolateral ventricular branches. There is dis shreya disease in the RCA proper prior to 1 of the PLV branches. This is estimated to be 50%-60% stenos ed. There is CACHORRO-3 flow in the vessel without evidence of collateral flow from right to left side. A 6-Belgian 3.25 EBU catheter was used for catheter support. Catheter was then advanced under direct fluoroscopic guidance, placed in the left coronary ostium. Diagnostic angiography documented widely patent LAD stents with some haziness in the distal margin of the stent as well as a possible lesion at the level of the LAD where the diagonal came off. The diagonal complex revealed a beta branch whi ch was completely occluded and was likely the culprit vessel. The patient was given Angiomax and a t herapeutic INR was documented. A 0.014 coronary wire was advanced across the lesion in question in t he diagonal and the vessel was subsequently ballooned and then stented with a 2.5 x 16 stent. Her ve ssels were extremely tortuous as is common in elderly women with a history of hypertension, coronary disease and aortic stenosis. We were able to open the vessel with flow into 1 of the 3 tributaries t hat went downstream from the diagonal. At this point, the patient had several salvos of nonsustained ventricular tachycardia and it was noted on angiography that the LAD distal to the last stent was oc cluded. It was difficult to place a wire into the LAD proper as the wire seemed to want to travel do wn the diagonal complex instead. We were able to get a wire down and get a wire distally into the ve ssel. A series of balloon and hudson wires were used to get the wire into the distal vessel. We were able to balloon it open and demonstrate that the wire was in the distal lumen. Unfortunately, attem pts to place additional wires was initially fraught with difficulty secondary to stenosis at the leve l of the LAD diagonal take-off and so we therefore stented the proximal LAD with a 3 x 16 Synergy brigida nt. We were then able to place a hudson wire into the distal LAD and document that the wire was in th e lumen, both proximally and distally. By pulling back 1 of the hudson wires and using a run-through extra floppy we were able to advance that floppy wire into the tortuosity in the distal LAD and the v essel was then stented secondarily with a 2.25 x 16 stent to straighten out a major curve in the bloo d vessel. There was an intervening segment that was hinging and green sticking, which required a 2nd 2.25 x 16 drug-eluting stent in the LAD, which brought the total number of LAD stents to 5. There w as still a residual kink in the vessel at the most distal stent, which was cut with a 2.25 x 8 Synerg y drug-eluting stent. There was evidence of a possible ostial compromise of the diagonal complex pro ximally. However, the patient's ST-segment elevation for the most part had resolved and after consul tation with Dr. Schmitt, we both felt it was most reasonable to stop the procedure as the patient was ch est pain free, and was having no residual back or shoulder pain. FINAL IMPRESSION: Successful balloon angioplasty and stent implantation for lateral wall LA related to LAD and subsequent repair of subacute stent thrombosis of a tortuous LAD with overlapping and mid to distal stents as well as a proximal LAD stent with partial compromise of the diagonal complex take off, but CACHORRO-3 flow into at least 1 branch of the diagonal and to the distal LAD postprocedure. Copy requested to: Primary Care Physician /[id number]/MODL
[2017-09-23 04:48] LABS: PLATELET COUNT 228 10^3/uL (150-400)
[2017-09-23 05:25] LABS: INR 1.03 (0.83-1.16); PROTIME(PATIENT) 13.7 SEC (12.0-15.0)
--- NOTE | 2017-09-23 08:44 | CPEKG ---
Heart Rate: 81 RR Interval: 741 P-R Interval: 180 QRSD Interval: 88 QT Interval: 380 QTC Interval: 441 P Alpha: 72 QRS Alpha: 40 T Wave Alpha: 52 EKG Severity - ABNORMAL ECG - EKG Impression: SINUS RHYTHM EKG Impression: ST ELEVATION, PROBABLE LATERAL INJURY EKG Impression: CONSIDER ANTEROSEPTAL INFARCT EKG Impression: COMPARED WITH 09/22/2017 AT 21:27, LATERAL DUANE PERSIST Electronically Signed By: Abida Schmitt 23-Sep-2017 14:25:31
--- NOTE | 2017-09-23 09:05 | PDMN ---
Medical Necessity Medical necessity: Change to IP, as of 09/22/17, per MD; los >2 mn for ongoing management of acute coronary syndrome & subsequent STEMI; admit for further workup/monitoring & surgical intervention; hx moderate aortic insufficiency ( currently being evaluated for TAVR), htn, diastolic dysfunction; per progress note & order 09/22/17
[2017-09-23] MEDS ORDERED: BISACODYL 10 MG SUPP PR PRN (09:26)
[2017-09-23] MEDS ORDERED: POLYETHYLENE GLYCOL 3350 17 GM PKT PO PRN (09:26)
[2017-09-23] MEDS ORDERED: MAGNESIUM HYDROXIDE 30 ML UDCUP PO PRN (09:26)
[2017-09-23] MEDS ORDERED: LACTULOSE 20 GM/30 ML UDCUP PO PRN (09:26)
[2017-09-23] MEDS: ENOXAPARIN 40 MG/0.4 ML SYR SC SCH (09:45)
--- NOTE | 2017-09-23 09:45 | PDCARPN ---
Cardiology Progress Note Assessment/Plan: Assessment/plan: 86-year-old female with severe aortic stenosis (mean gradient 61 mm of mercury) and moderate aortic regurgitation. She has a permanent pacemaker, paroxysmal atrial arrhythmias, rheumatoid arthritis as well as hypertension and dyslipidemia. She was admitted September 21 with interscapular discomfort concerning for angina. She underwent coronary angiography demonstrating 80% mid LAD lesion that was treated by Dr. Logan Beasley with two Synergy stents. Echocardiogram confirms severe aortic stenosis, moderate aortic regurgitation, [id number] tricuspid regurgitation, normal biventricular systolic function. On 09/22 she developed chest and left arm pain with evidence of lateral DUANE. Taken emergently to lab coordinator by Dr. Rios. D1 was thrombosed. This was partially intervened upon but she had LAD compromise and required multiple additional stents to the LAD. 1. Valvular heart disease: She has been evaluated for TAVR She is not a candidate for surgical aortic valve replacement, per Dr. Logan New. At this point, TAVR on hold due to STEMI. Follow up with Dr. Schmidt. She has had her pre procedure carotid ultrasound preTAVR CT scans today. 2. Coronary disease: Status post PCI of the LAD on September 21 and as well as intervention to thrombosed D1 on 09/22. She is on DAPT with ASA 325 and Plavix 75. Continue statin and beta-manju. Plavix genetic testing was ordered. 3. Hypertension: Well controlled. Continue beta-manju 4. Permanent pacemaker and intermittent atrial fibrillation. She has previously declined systemic anticoagulation. This can be readdressed as outpatient and is now complicated by the need for residential DAPT. 5. Non flow-limiting carotid disease seen on recent ultrasound. Continue aspirin and statin. 6. Slightly elevated white count: No obvious infectious issues. This should be repeated as an outpatient. 7. Dyslipidemia: Continue statin. LDL is at goal. 09/23/17 09:53 Subjective: Lula feels nauseated. She does not have the same chest/shoulder or back pain that she had prior to her cath procedures. Reviewed/Discussed With: multidisciplinary team, other (Dr. Schmidt. Dr. Beasley) Objective: Vital Signs (8 Hrs) Temp Pulse Resp BP Pulse Ox 09/23/17 09:00 83 21 H 97/74 L 91 L 09/23/17 08:00 36.4 C 87 20 124/65 H 91 L 09/23/17 07:00 84 20 125/62 H 94 09/23/17 06:00 82 18 106/66 93 09/23/17 05:00 81 24 H 127/60 H 97 09/23/17 04:38 37.1 C 77 24 H 110/77 98 Intake/Output (24 Hrs) 09/22/17 09/23/17 09/24/17 05:59 05:59 05:59 Intake Total 1025 Output Total 275 Balance 750 Intake: Oral (ml) 300 IV Intake (ml) 725 Output: Urine (ml) 275 Bedpan 275 Other: Weight 46.3 kg Number of Voids Bedpan 3 NAD JVP <10. RRR. Harsh II/ mid to late MICKIE throughout the precordium LUngs CTAB Bilateral groins ecchymoses without hematoma or bruit No edema. 2+ dp bilaterally Result Diagrams: 09/23/17 04:30 09/23/17 04:30 EKG: reviewed: NSR, lateral DUANE consistent with evolving STEMI Telemetry: SR with intermittent A and V pacing ICD10 Worksheet Patient Problems: Problems Problem Status Onset Acute coronary syndrome Acute
[2017-09-23] MEDS: ASPIRIN EC 325 MG TAB PO SCH (09:52)
[2017-09-23] MEDS: CLOPIDOGREL BISULFATE 75 MG TAB PO SCH (09:53)
[2017-09-23] MEDS: ATORVASTATIN CALCIUM 10 MG TAB PO SCH (09:54)
[2017-09-23] MEDS: VIT D PO SCH (09:55)
[2017-09-23] MEDS: MULTIVITAMINS 1 EACH TAB PO SCH (09:55)
[2017-09-23] MEDS: CALCIUM CITRATE PO SCH (09:55)
[2017-09-23] MEDS: SENNOSIDES/DOCUSATE SODIUM TAB PO SCH ×2 (09:57→21:01)
[2017-09-23] MEDS ORDERED: PROMETHAZINE HCL 25 MG/ML INJ IVP PRN (10:04)
[2017-09-23] MEDS ORDERED: PROMETHAZINE HCL 25 MG TAB PO PRN (10:04)
[2017-09-23] MEDS ORDERED: METOCLOPRAMIDE 10 MG/2 ML VIAL IVP PRN (10:05)
[2017-09-23] MEDS ORDERED: METOCLOPRAMIDE 10 MG TAB PO PRN (10:05)
[2017-09-23] MEDS: ACETAMINOPHEN 325 MG TAB PO PRN ×2 (11:50→16:43)
[2017-09-23 13:54] LABS: CREATINE KINASE 3020 IU/L (0-156)
--- NOTE | 2017-09-23 14:45 | CPEKG ---
Heart Rate: 86 RR Interval: 698 P-R Interval: 192 QRSD Interval: 84 QT Interval: 424 QTC Interval: 508 P [place]: 71 QRS [place]: 36 T Wave [place]: -88 EKG Severity - ABNORMAL ECG - EKG Impression: SINUS RHYTHM EKG Impression: LOW VOLTAGE IN FRONTAL LEADS EKG Impression: CONSIDER ANTEROSEPTAL INFARCT EKG Impression: NONSPECIFIC T ABNORMALITIES, LATERAL LEADS EKG Impression: ST ELEVATION, LATERAL LEADS. CHANGES CONSISTENT WITH EVOLVING LATERAL ST EKG Impression: ELEVATION PR EKG Impression: PROLONGED QT INTERVAL EKG Impression: COMPARED WITH 09/23/2017 AT 8:42 A.M., CHANGES CONSISTENT WITH EVOLVING LATERAL EKG Impression: ST ELEVATION PR Electronically Signed By: Abida Schmitt 24-Sep-2017 13:37:40
--- NOTE | 2017-09-23 16:43 | HOSPPROG ---
Hospitalist Progress Note Assessment/Plan: Assessment: 86-year-old female presents with acute coronary syndrome and subsequent STEMI Plan: # Acute coronary syndrome. POA, evidenced by 80% LAD lesion w/ leukocytosis, back pain as presenting anginal sx - stented by Dr. Beasley 09/21 - initially placed on ASA/effient/bblocker, adjusted to ASA 325/plavix s/p STEMI by Dr. Rios # STEMI. Recurrent back pain and evolving shoulder pain as anginal sx w/ EKG demonstrating STEMI 09/22, taken to mill laborer where D1 was stented and was likely culprit, but then experienced distal thrombosis in LAD likely from unstable plaque at the LAD origin and then sinuous vessel distally, required numerous PCI balloon/stents 09/22 PM - patient w/ recurrent back pain 09/23 PM, repeating EKG now to monitor for any recurrent ST seg elevations/depression and repeating trop now to establish baseline (which we anticipate will be elevated from STEMI last night), so that we can use it to help us interpret any ongoing pain tonight/tomorrow - will cont serial EKG in AM, trop this PM and in AM - cont on tele and place on supplemental o2 - d/w Dr. Schmitt, will give SLN now and gauge effect, place on nitro paste if seems to benefit - cont on ASA/plavix/statin/bblocker # Hypertension. Continue home beta-manju # Aortic stenosis and insufficiency. Will likely require some delay in TAVR given severity of above - staging CUS/CTA w/o remarkable findings # Suspected atelectasis. IS, place on o2 # Nausea. Unclear etiology, patient was symptomatic yesterday prior to STEMI and again today, treating supportively w/ anti-emetics but also evaluating for angina as above - cont on IVF this evening given contrast load yesterday and poor oral intake today Diet. IVF, cardiac Prophylaxis. High risk patient, Lovenox 40 Code. Full per patient, daughter is MD UMANZOR Disposition. Anticipated discharge is uncertain, upgraded to inpatient admission status re: anticipated LOS > 48hrs for reasonable medical necessity including STEMI. 40 minutes of critical care time w/ this patient, at bedside, coordinating care w/ the above providers and family, addressing her critical illness which places her at high risk of mortality (STEMI). Subjective: patient w/ recurrent back pain, ongoing nausea Objective: Vital Signs Temp Pulse Resp BP Pulse Ox 36.3 C 89 15 125/62 H 90 L 09/23/17 15:54 09/23/17 15:54 09/23/17 15:54 09/23/17 15:54 09/23/17 15:54 Laboratory Results 09/23/17 04:30 09/23/17 04:30 09/22/17 09/23/17 09/24/17 05:59 05:59 05:59 Intake Total 1025 Output Total 275 Balance 750 PT 13.7 SEC (12.0-15.0) 09/23/17 04:30 INR 1.03 (0.83-1.16) 09/23/17 04:30 - Physical Exam Constitutional: uncomfortable, No not in pain (mild in back) Ears, Nose, Mouth, Throat: moist mucous membranes Cardiovascular: regular rate and rhythym, no murmur, rub, or gallop, No edema Respiratory: no respiratory distress, no rales or rhonchi, clear to auscultation Gastrointestinal: normoactive bowel sounds, soft, non-tender abdomen, no palpable masses Musculoskeletal: other (no tendernes along thoracic paraspinal muscles, full ROM L shoulder w/o pain elicited) Neurologic: AAOx3 Psychiatric: interacting appropriately, not anxious, not encephalopathic, thought process linear ICD10 Worksheet Patient Problems: Problems Problem Status Onset Acute coronary syndrome Acute
[2017-09-23] MEDS: NITROGLYCERIN 0.4 MG BTL SL PRN (16:45)
--- NOTE | 2017-09-23 16:45 | CPEKG ---
Heart Rate: 84 RR Interval: 714 P-R Interval: 196 QRSD Interval: 86 QT Interval: 416 QTC Interval: 492 P [place]: 72 QRS [place]: 85 T Wave [place]: -83 EKG Severity - ABNORMAL ECG - EKG Impression: SINUS RHYTHM EKG Impression: LOW VOLTAGE WITH RIGHT AXIS DEVIATION EKG Impression: BORDERLINE R WAVE PROGRESSION, ANTERIOR LEADS EKG Impression: ABNORMAL T, CONSIDER ISCHEMIA, LATERAL LEADS EKG Impression: BORDERLINE ST ELEVATION, LATERAL LEADS EKG Impression: BORDERLINE PROLONGED QT INTERVAL EKG Impression: COMPARED WITH 09/23/2017, CHANGES CONSISTENT WITH EVOLVING LATERAL WY ARE SEEN. EKG Impression: NO NEW ISCHEMIA Electronically Signed By: Abida Schmitt 23-Sep-2017 16:54:02
[2017-09-23] MEDS ORDERED: D5W 1/2 NS 1,000 ML IV SCH (17:00)
--- NOTE | 2017-09-23 19:58 | ECHO ---
[email or web address] [address] Main: [phone] Fax: [email or web address] Echocardiogram Name: TREVER QUINN MR#: [id number] Study Date: 09/23/2017 Study Time: 06:24 PM Date of : 1930 Age: 86 year(s) Height: 152.4 cm (60 in.) Weight: 46.27 kg (102 lb.) BSA: 1.4 m2 Gender: Female Examination: Echo Indication: Chest Pain, Post Stents, Pacemaker, Implants Image Quality: Contrast: Requested by: Abida Schmitt BP: 96 mmHg/61 mmHg Heart Rate: Rhythm: Pacemaker rhythm Indication: Chest Pain, Post Stents, Pacemaker, Implants Procedure Staff Acct Exec: Benny Mejia Reading Physician: Abida Schmitt Requesting Provider: Toni Salazar Conclusions: Normal size left ventricle. The ejection fraction is estimated to be 35-40 %. There is mid to distal anteroseptal hypokinesis, mid to distal anterolateral hypokinesis and apical hypokinesis.. Normal size right ventricle. Normal RV function. There is a pacemaker lead noted in the right ventricle. The left atrium is severely dilated. Mild mitral valve regurgitation is present. Moderate aortic valve regurgitation is present. The Ao mean, max gradient is 39/52 mmHg. The AO velocity most likely underestimated due to LV function.. Moderate tricuspid regurgitation is present. The pulmonary artery pressure is mildly increased. Compared with 09/21/2017 LV systolic function is now mild to moderately decreased and regional wall motion abnormalities are new. Measurements: Chambers Valvular Assessment AV/MV Valvular Assessment TV/PV Normal Normal Normal Name Value Range Name Value Range Name Value Range Ao Estella (MM): 2.6 cm (2.2 cm-3.7 AV Vmax: 3.62 m/s (1 m/s-1.7 TR Vmax: 3.18 mm/s ( - ) cm) m/s) TR PGmax: 40 mmHg ( - ) IVSd (2D): 0.9 cm (0.6 cm-1.1 AV maxP mmHg ( - ) syst. PAP: 45 mmHg ( - ) cm) AV meanP mmHg ( - ) PV Vmax: 1.25 m/s (0.6 m/s-0.9 LVDd (2D): 3.4 cm (3.9 cm-5.3 LVOT Vmax: 0.87 m/s (0.7 m/s-1.1 m/s) cm) m/s) PV PGmax: 6 mmHg ( - ) LVDs (2D): 2.6 cm (2.1 cm-4 LITO (Vmax): 0.5 cm2 ( - ) cm) LITO (VTI): 0.6 cm ( - ) LVPWd (2D): 1.0 cm ( - ) AR (PHT): 374 ms ( - ) Patient: TREVER QUINN Study Date: 09/23/2017 Page 1 of 2 06:24 PM LVOTd 1.7 cm 1.7 cm mm MV E Vmax: 0.89 m/s ( - ) LVEF (BP): 36 % (>=55 %) MV A Vmax: 0.46 m/s ( - ) EF Range: 35-40 % MV E/A: 1.93 ( - ) MV meanP mmHg ( - ) MVA (Vmax): 2.2 m/s ( - ) Continued Measurements: Chambers Valvular Assessment AV/MV Valvular Assessment TV/PV Name Value Name Value Name Value LADs Lon.2 cm MV VTI: 20.60 cm CVP (est.): 5 mmHg LA Area: 18.4 cm2 AR Vmax: 3.12 cm/s LA Volume: 48 ml AR VTI: 79.3 cm LA Volume Index: 34.3 ml/m2 Findings: Left Ventricle: Normal size left ventricle. The ejection fraction is estimated to be 35-40 %. There is mid to distal anteroseptal hypokinesis, mid to distal anterolateral hypokinesis and apical hypokinesis.. Right Ventricle: Normal size right ventricle. Normal RV function. There is a pacemaker lead noted in the right ventricle. Left Atrium: The left atrium is severely dilated. Right Atrium: The right atrium is mildly dilated. Mitral Valve: Mild mitral valve regurgitation is present. MR may be underestimated due to LV function.. Aortic Valve: Severe aortic valve calcification is present. Moderate aortic valve regurgitation is present. The Ao mean, max gradient is 39/52 mmHg. The AO velocity most likely underestimated due to LV function.. Tricuspid Valve: Moderate tricuspid regurgitation is present. The pulmonary artery pressure is mildly increased. Pulmonic Valve: The pulmonic valve is normal in appearance and function. Aorta: There is mild to moderate descending AO calcification.. Pericardium: No pericardial effusion. (No Signature Object) Patient: TREVER QUINN Study Date: 09/23/2017 Page 2 of 2 06:24 PM [id number]
[2017-09-23] MEDS ORDERED: FUROSEMIDE 20 MG/2 ML VIAL IVP ONE (20:00)
[2017-09-23] MEDS: METOPROLOL SUCCINATE XR 25 MG TAB PO SCH (20:59)
[2017-09-24] MEDS: CALCIUM CARB W/VIT D 500 MG TAB PO SCH ×3 (00:24→20:15)
[2017-09-24 08:43] LABS: PLATELET COUNT 196 10^3/uL (150-400)
--- NOTE | 2017-09-24 09:03 | CPEKG ---
Heart Rate: 93 RR Interval: 645 P-R Interval: 182 QRSD Interval: 84 QT Interval: 392 QTC Interval: 488 P [place]: 0 QRS [place]: 76 T Wave [place]: -82 EKG Severity - ABNORMAL ECG - EKG Impression: SINUS RHYTHM EKG Impression: ST ELEVATION, PROBABLE LATERAL INJURY ; CHANGES CONSISTENT WITH EVOLVING EKG Impression: LATERAL ST ELEVATION PR EKG Impression: BORDERLINE T ABNORMALITIES, INFERIOR LEADS EKG Impression: BORDERLINE PROLONGED QT INTERVAL EKG Impression: COMPARED WITH 09/23/2017 AT 4:43 P.M., NO SIGNIFICANT CHANGE Electronically Signed By: Abida Schmitt 24-Sep-2017 13:33:45
[2017-09-24 09:08] LABS: CREATINE KINASE 1215 IU/L (0-156)
[2017-09-24] MEDS: ATORVASTATIN CALCIUM 10 MG TAB PO SCH (10:05)
[2017-09-24] MEDS: ENOXAPARIN 40 MG/0.4 ML SYR SC SCH (10:05)
[2017-09-24] MEDS: CLOPIDOGREL BISULFATE 75 MG TAB PO SCH (10:05)
[2017-09-24] MEDS: SENNOSIDES/DOCUSATE SODIUM TAB PO SCH ×2 (10:06→22:45)
[2017-09-24] MEDS: ASPIRIN EC 325 MG TAB PO SCH (10:06)
[2017-09-24] MEDS: MULTIVITAMINS 1 EACH TAB PO SCH (10:06)
--- NOTE | 2017-09-24 11:07 | PDCARPN ---
Cardiology Progress Note Assessment/Plan: Assessment/plan: 86-year-old female with severe aortic stenosis (mean gradient 61 mm of mercury) and moderate aortic regurgitation. She has a permanent pacemaker, paroxysmal atrial arrhythmias, rheumatoid arthritis as well as hypertension and dyslipidemia. She was admitted September 21 with interscapular discomfort concerning for angina. She underwent coronary angiography demonstrating 80% mid LAD lesion that was treated by Dr. Logan Beasley with two Synergy stents. On 09/22 she developed chest and left arm pain with evidence of lateral DUANE. Taken emergently to laborer egg producing farm by Dr. Rios. D1 was thrombosed. This was partially intervened upon but she had LAD compromise and required multiple additional stents to the LAD. Peak trop 129. Decrement in LVEF to 35-40% 1. Valvular heart disease: She has been evaluated for TAVR She is not a candidate for surgical aortic valve replacement, per Dr. Logan New. At this point, TAVR on hold due to STEMI. Follow up with Dr. Schmidt. She has had her pre procedure carotid ultrasound preTAVR CT scans today. 2. Coronary disease: Status post PCI of the LAD on September 21 and as well as intervention to thrombosed D1 on 09/22. She is on DAPT with ASA 325 and Plavix 75. Continue statin and beta-manju. Plavix genetic testing was ordered. Not on HEENA-I due to relatively low BP. Could consider HEENA-I if renal function remains stable. 3. CMP/CHF: new O2 requirement. Gentle diuresis. CXR last night with pulm edema. Cont Toprol. Consider HEENA-I 4. Hypertension: Well controlled. Continue beta-manju 5. Permanent pacemaker and intermittent atrial fibrillation. She has previously declined systemic anticoagulation. This can be readdressed as outpatient and is now complicated by the need for fdc DAPT. 6. Non flow-limiting carotid disease seen on recent ultrasound. Continue aspirin and statin. 7. Slightly elevated white count: No obvious infectious issues. This should be repeated as an outpatient. 8. Dyslipidemia: Continue statin. LDL is at goal. 9. Acute anemia: has received IVF, having some back pain. Abd/pelvic CT to rule out RP bleed 30 minutes spent in chart review, study review, discussion with patient and her family 09/24/17 11:09 Subjective: Lula reports feeling better. No left arm, chest pain. She does have left greater than right lower back pain. No SOB Reviewed/Discussed With: family Time Spent With Patient: 20 minutes Objective: Vital Signs (8 Hrs) Temp Pulse Resp BP Pulse Ox 09/24/17 07:44 36.4 C 84 18 91/50 L 92 09/24/17 04:00 36.6 C 103 H 16 119/80 88 L Intake/Output (24 Hrs) 09/23/17 09/24/17 09/25/17 05:59 05:59 05:59 Intake Total 1025 600 Output Total 275 320 Balance 750 280 Intake: Oral (ml) 300 400 IV Intake (ml) 725 IV Infused (ml) 200 D5w 1/2 Ns 1,000 ml @ 100 200 mls/hr IV CONT NEVIN Rx#: [id number] Output: Urine (ml) 275 320 Bedpan 275 Toilet 320 Other: Weight 46.3 kg 48.4 kg Number of Voids Bedpan 3 Toilet 1 NAD JVP <10 RRR murmur Decreased breath sounds left base No edema Result Diagrams: 09/24/17 08:28 09/24/17 08:28 Cardiac Labs: Cardiac Lab Results (72 Hrs) 09/24/17 09/23/17 09/23/17 08:28 20:28 17:00 CK-MB (CK-2) Fraction 101.00 H Troponin I 72.200 H 113.000 H 129.000 H 09/23/17 04:30 CK-MB (CK-2) Fraction 261.00 H Troponin I 112.000 H EKG: Serial tracings reviewed: evolving lateral STEMI Echocardiogram: 09/23 reviewed: decrement in LVEF to 35-40% with apical, anterolateral, anteroseptal HK. ICD10 Worksheet Patient Problems: Problems Problem Status Onset Acute coronary syndrome Acute
[2017-09-24] MEDS: FUROSEMIDE 20 MG/2 ML VIAL IVP SCH ×2 (12:51→17:30)
--- NOTE | 2017-09-24 15:59 | HOSPPROG ---
Hospitalist Progress Note Assessment/Plan: 86-year-old female presents with acute coronary syndrome and subsequent STEMI Plan: # Acute coronary syndrome found to have an 80% LAD lesion w/ leukocytosis, back pain as presenting anginal sx in with return to chemical laboratory tester on 09/22 2017 for STEMI - stented by Dr. Beasley 09/21 with return to chemical laboratory tester on 09/22 - continue ASA/effient/bblocker, adjusted to ASA 325/plavix s/p STEMI by Dr. Rios # Hypertension. Continue home beta-manju # Aortic stenosis and insufficiency. Will likely require some delay in TAVR given severity of above - staging CUS/CTA w/o remarkable findings # Suspected atelectasis. IS, place on o2 # Nausea. Unclear etiology, patient was symptomatic yesterday prior to STEMI and again today, treating supportively w/ anti-emetics but also evaluating for angina as above - cont on IVF this evening given contrast load yesterday and poor oral intake today Diet. IVF, cardiac Prophylaxis. High risk patient, Lovenox 40 Code. Full per patient, daughter is MD POBri Disposition. Anticipated discharge is uncertain, upgraded to inpatient admission status re: anticipated LOS > 48hrs for reasonable medical necessity including STEMI. Subjective: Feels better today. Denies any chest, back or shoulder pain. Denies shortness of breath. Objective: Vital Signs Temp Pulse Resp BP Pulse Ox 36.6 C 84 16 107/58 L 94 09/24/17 11:34 09/24/17 11:34 09/24/17 11:34 09/24/17 11:34 09/24/17 11:34 Laboratory Results 09/24/17 08:28 09/24/17 08:28 09/23/17 09/24/17 09/25/17 05:59 05:59 05:59 Intake Total 1025 600 Output Total 275 320 Balance 750 280 PT 13.7 SEC (12.0-15.0) 09/23/17 04:30 INR 1.03 (0.83-1.16) 09/23/17 04:30 - Physical Exam Constitutional: no apparent distress, appears nourished, not in pain Ears, Nose, Mouth, Throat: moist mucous membranes, hearing normal, ears appear normal, no oral mucosal ulcers Cardiovascular: regular rate and rhythym, no murmur, rub, or gallop, systolic murmur, No edema Respiratory: no respiratory distress, no rales or rhonchi, clear to auscultation , No expiratory wheeze, No rhonchi ICD10 Worksheet Patient Problems: Problems Problem Status Onset Acute coronary syndrome Acute
[2017-09-24] MEDS: ACETAMINOPHEN 325 MG TAB PO PRN (16:07)
[2017-09-24] MEDS: METOPROLOL SUCCINATE XR 25 MG TAB PO SCH (20:16)
[2017-09-24] MEDS: OXYCODONE/APAP 5/325 TAB PO PRN (20:17)
[2017-09-25 04:27] LABS: PLATELET COUNT 197 10^3/uL (150-400)
[2017-09-25] MEDS: ENOXAPARIN 40 MG/0.4 ML SYR SC SCH (09:41)
[2017-09-25] MEDS: CLOPIDOGREL BISULFATE 75 MG TAB PO SCH (09:41)
[2017-09-25] MEDS: FUROSEMIDE 20 MG/2 ML VIAL IVP SCH (09:41)
[2017-09-25] MEDS: ASPIRIN EC 325 MG TAB PO SCH (09:42)
[2017-09-25] MEDS: CALCIUM CARB W/VIT D 500 MG TAB PO SCH ×2 (09:42→21:10)
[2017-09-25] MEDS: ATORVASTATIN CALCIUM 10 MG TAB PO SCH (09:42)
[2017-09-25] MEDS: MULTIVITAMINS 1 EACH TAB PO SCH (09:42)
[2017-09-25] MEDS: SENNOSIDES/DOCUSATE SODIUM TAB PO SCH ×2 (09:43→21:11)
--- NOTE | 2017-09-25 12:20 | PDCARPN ---
Cardiology Progress Note Assessment/Plan: Assessment/plan: 86-year-old female with severe aortic stenosis and moderate aortic regurgitation. She has a permanent pacemaker, paroxysmal atrial arrhythmias, rheumatoid arthritis as well as hypertension and dyslipidemia. She was admitted September 21 with interscapular discomfort concerning for angina. She underwent coronary angiography demonstrating 80% mid LAD lesion that was treated by Dr. Logan Beasley with two Synergy stents. On 09/22 she developed chest and left arm pain with evidence of lateral DUANE. Taken emergently to slab polisher by Dr. Rios. D1 was thrombosed. This was partially intervened upon but the LAD became compromised and required multiple additional stents to the LAD. Peak trop 129. Decrement in LVEF to 35-40% 1. Valvular heart disease: She has been evaluated for TAVR She is not a candidate for surgical aortic valve replacement, per Dr. Logan New. At this point, TAVR on hold due to STEMI. Follow up with Dr. Schmidt. She has had her pre procedure carotid ultrasound preTAVR CT scans this admission. 2. Coronary disease: Status post PCI of the LAD on September 21 and as well as intervention to thrombosed D1 on 09/22. She is on DAPT with ASA 325 and Plavix 75. Continue statin and beta-manju. Plavix genetic testing shows that she is a poor metabolizer. Will discuss choice of antiplatelet therapy with Dr. Beasley. Not on HEENA-I due to relatively low BP. Could consider HEENA- I if renal function remains stable. 3. CMP/CHF: new O2 requirement. Continue gentle diuresis. Cont Toprol. Consider EHENA-I, but now her blood pressure slightly too low for that. Will likely need to be discharged on oral Lasix. 4. Hypertension: Well controlled. Continue beta-manju 5. Permanent pacemaker and intermittent atrial fibrillation. She has previously declined systemic anticoagulation. This can be readdressed as outpatient and is now complicated by the need for fpc DAPT. 6. Non flow-limiting carotid disease seen on recent ultrasound. Continue aspirin and statin. 7. Acute anemia: Abd/pelvic CT was negative for RP bleed. No other obvious clinical bleeding. Check stool for blood. Iron has been started. 8. Dyslipidemia: Continue statin. LDL is at goal. Discussed with nursing staff and patient's family. 09/25/17 12:18 Subjective: Meg feels fairly well. She is not particularly dyspneic. She is not having chest pain, arm pain, or upper back pain. She did have diarrhea yesterday but it was nonbloody Reviewed/Discussed With: family, multidisciplinary team Objective: Vital Signs (8 Hrs) Temp Pulse Resp BP Pulse Ox 09/25/17 07:39 36.6 C 74 16 92/52 L 99 Intake/Output (24 Hrs) 09/24/17 09/25/17 09/26/17 05:59 05:59 05:59 Intake Total 600 400 Output Total 320 600 Balance 280 -200 Intake: Oral (ml) 400 400 IV Infused (ml) 200 D5w 1/2 Ns 1,000 ml @ 100 200 mls/hr IV CONT NEVIN Rx#: [id number] Output: Urine (ml) 320 600 Toilet 320 600 Other: Weight 48.4 kg 48 kg Number of Voids Toilet 1 2 Number of Stools Toilet 1 No acute distress. Sitting up in bed JVP 12 cm of water. Regular rate and rhythm with a harsh aortic stenosis murmur Minimal bibasilar rales No lower extremity edema Result Diagrams: 09/25/17 04:09 09/25/17 04:09 Cardiac Labs: Cardiac Lab Results (72 Hrs) 09/25/17 09/24/17 09/23/17 11:24 08:28 20:28 CK-MB (CK-2) Fraction 101.00 H Troponin I 40.300 H 72.200 H 113.000 H 09/23/17 09/23/17 17:00 04:30 CK-MB (CK-2) Fraction 261.00 H Troponin I 129.000 H 112.000 H Telemetry: Sinus rhythm with occasional paced beats. Occasional PVCs. ICD10 Worksheet Patient Problems: Problems Problem Status Onset Acute coronary syndrome Acute
[2017-09-25] MEDS: FERROUS SULFATE 325 MG TAB PO SCH ×2 (14:53→21:10)
--- NOTE | 2017-09-25 15:38 | ASMTCMCOM ---
CM Note CM Note Notes: CM met w/ pt and family for dispo planning. Therapies are recommending HC. Family is afraid that she will have weakness and fall. CM provided senior blue book and list of private duty HC. Pt lives at the [facility]. Family will speak to [facility] to see if they provide any type of support or supervision. Needs are TBD at this time. CM to follow. Plan: TBD Date Signed: 09/25/2017 03:38 PM Electronically Signed By:FERMIN Hazel
--- NOTE | 2017-09-25 15:43 | HOSPPROG ---
Hospitalist Progress Note Assessment/Plan: 86-year-old female presents with acute coronary syndrome and subsequent STEMI Plan: # Acute coronary syndrome found to have an 80% LAD lesion w/ leukocytosis, back pain as presenting anginal sx with return to cardiac cath tech on 09/22 2017 for STEMI status post PCI with 7 stents -continue medical management per Cardiology # normocytic anemia status post CT that was negative for retroperitoneal bleeding -will start iron replacement therapy and monitor for signs of bleeding # Hypertension. Continue home beta-manju -consider adding HEENA inhibitor as blood pressure improves # Aortic stenosis and insufficiency. -follow up with Cardiology as scheduled # Suspected atelectasis. IS, place on o2 Diet. IVF, cardiac Prophylaxis. High risk patient, Lovenox 40 Code. Full per patient, daughter is MD UMANZOR Disposition. Anticipated discharge is uncertain, upgraded to inpatient admission status re: anticipated LOS > 48hrs for reasonable medical necessity including STEMI. Subjective: Denies any chest pain or upper back pain. She does note some lower back pain that is chronic. She denies any shortness of breath. Objective: Vital Signs Temp Pulse Resp BP Pulse Ox 36.5 C 84 14 63/43 L 91 L 09/25/17 15:19 09/25/17 15:19 09/25/17 15:19 09/25/17 12:05 09/25/17 15:19 Laboratory Results 09/25/17 04:09 09/25/17 04:09 09/24/17 09/25/17 09/26/17 05:59 05:59 05:59 Intake Total 600 400 Output Total 320 600 Balance 280 -200 PT 13.7 SEC (12.0-15.0) 09/23/17 04:30 INR 1.03 (0.83-1.16) 09/23/17 04:30 - Physical Exam Constitutional: no apparent distress, appears nourished, not in pain Cardiovascular: regular rate and rhythym, systolic murmur, No tachycardia, No edema Respiratory: no respiratory distress, no rales or rhonchi, clear to auscultation , reduced air movement Gastrointestinal: normoactive bowel sounds, soft, non-tender abdomen, no palpable masses, No guarding, No rebound ICD10 Worksheet Patient Problems: Problems Problem Status Onset Acute coronary syndrome Acute
[2017-09-25] MEDS ORDERED: NS 1,000 ML IV ONE (17:30)
[2017-09-25] MEDS: ACETAMINOPHEN 325 MG TAB PO PRN ×2 (17:32→22:05)
[2017-09-25] MEDS: METOPROLOL SUCCINATE XR 25 MG TAB PO SCH (21:11)
[2017-09-26] MEDS: ACETAMINOPHEN 325 MG TAB PO PRN ×2 (02:04→18:40)
[2017-09-26 04:43] LABS: PLATELET COUNT 234 10^3/uL (150-400)
--- NOTE | 2017-09-26 09:35 | PDCARPN ---
Cardiology Progress Note Assessment/Plan: Assessment/plan: 86-year-old female with severe aortic stenosis and moderate aortic regurgitation. She has a permanent pacemaker, paroxysmal atrial arrhythmias, rheumatoid arthritis as well as hypertension and dyslipidemia. She was admitted September 21 with interscapular discomfort concerning for angina. She underwent coronary angiography demonstrating 80% mid LAD lesion that was treated by Dr. Logan Beasley with two Synergy stents. On 09/22 she developed chest and left arm pain with evidence of lateral DUANE. Taken emergently to label press operator by Dr. Rios. D1 was thrombosed. This was partially intervened upon but the LAD became compromised and required multiple additional stents to the LAD. Peak trop 129. Decrement in LVEF to 35-40% 1. Valvular heart disease: She has been evaluated for TAVR She is not a candidate for surgical aortic valve replacement, per Dr. Logan New. At this point, TAVR on hold due to STEMI. Follow up with Dr. Schmidt. It is likey that her acute STEMI and resultant CMP will make TAVR risk prohibitive. She has had her pre procedure carotid ultrasound preTAVR CT scans this admission. 2. Coronary disease: Status post PCI of the LAD on September 21 and as well as intervention to thrombosed D1 on 09/22. She is on DAPT with ASA 325 and Plavix 75. Continue statin and beta-manju. Plavix genetic testing shows that she is a poor metabolizer; however, she has not had recurrent clinical events and I prefer to not switch antiplatelet agents given the unclear clinical significance of plavix genotyping. Not on HEENA-I due to relatively low BP. Could consider HEENA-I if renal function remains stable. 3. CMP/CHF: Did receive 2 days of IV diuretics but developed hypotesion. Initiate oral lasix today. Cont Toprol. Consider HEENA-I, but now her blood pressure slightly too low for that. 4. Hypertension: Well controlled. Continue beta-manju 5. Permanent pacemaker and intermittent atrial fibrillation. She has previously declined systemic anticoagulation. This can be readdressed as outpatient and is now complicated by the need for sliver handler DAPT and ongoing anemia. ECG now. 6. Non flow-limiting carotid disease seen on recent ultrasound. Continue aspirin and statin. 7. Anemia: Abd/pelvic CT was negative for RP bleed. No other obvious clinical bleeding. Hct stable today. Check stool for blood. Iron has been started. Check iron studies. 8. Dyslipidemia: Continue statin. LDL is at goal. May be ready for discharge to rehab tomorrow Discussed with nursing staff and patient's family. 09/26/17 09:37 Subjective: Meg feels a bit better. No SOB or CP. Persistent LBP better with heating pad. No BM x 2 days Reviewed/Discussed With: family Objective: Vital Signs (8 Hrs) Temp Pulse Resp BP Pulse Ox 09/26/17 08:00 36.3 C 82 16 101/63 97 09/26/17 04:00 36.8 C 86 16 98/53 L 94 Intake/Output (24 Hrs) 09/25/17 09/26/17 09/27/17 05:59 05:59 05:59 Intake Total 400 440 Output Total 600 600 Balance -200 -160 Intake: Oral (ml) 400 440 Output: Urine (ml) 600 600 Toilet 600 600 Other: Weight 48 kg 48 kg Number of Voids Toilet 2 2 Number of Stools Toilet 1 NAD, up in chair JVP 12. Irreg irreg. murmur Bibasilar rales No edema Result Diagrams: 09/26/17 04:14 09/26/17 04:14 Cardiac Labs: Cardiac Lab Results (72 Hrs) 09/25/17 09/24/17 09/23/17 11:24 08:28 20:28 CK-MB (CK-2) Fraction 101.00 H Troponin I 40.300 H 72.200 H 113.000 H 09/23/17 09/23/17 17:00 04:30 CK-MB (CK-2) Fraction 261.00 H Troponin I 129.000 H 112.000 H Telemetry: AF with CVR. Occ V pacing ICD10 Worksheet Patient Problems: Problems Problem Status Onset Acute coronary syndrome Acute
[2017-09-26] MEDS: CLOPIDOGREL BISULFATE 75 MG TAB PO SCH (09:38)
[2017-09-26] MEDS: CALCIUM CARB W/VIT D 500 MG TAB PO SCH ×2 (09:39→22:27)
[2017-09-26] MEDS: SENNOSIDES/DOCUSATE SODIUM TAB PO SCH ×2 (09:39→22:27)
[2017-09-26] MEDS: MULTIVITAMINS 1 EACH TAB PO SCH (09:40)
[2017-09-26] MEDS: ATORVASTATIN CALCIUM 10 MG TAB PO SCH (09:40)
[2017-09-26] MEDS: FERROUS SULFATE 325 MG TAB PO SCH ×2 (09:40→22:27)
[2017-09-26] MEDS: ASPIRIN EC 325 MG TAB PO SCH (09:40)
[2017-09-26] MEDS: FUROSEMIDE 20 MG/2 ML VIAL IVP SCH (09:41)
[2017-09-26] MEDS: ENOXAPARIN 40 MG/0.4 ML SYR SC SCH (09:41)
--- NOTE | 2017-09-26 12:33 | CPEKG ---
Heart Rate: 105 RR Interval: 571 P-R Interval: 188 QRSD Interval: 84 QT Interval: 300 QTC Interval: 397 P Sayre: 138 QRS Sayre: 61 T Wave Sayre: -60 EKG Severity - ABNORMAL ECG - EKG Impression: INTERMITTENT ATRIAL PACING. SOME SINUS BEATS. VENTRICULAR-PACED COMPLEXES 2 EKG Impression: BEATS THAT A PEER TO BE EITHER NON CAPTURE OR FUSION EKG Impression: NONSPECIFIC REPOL ABNORMALITY, DIFFUSE LEADS EKG Impression: BORDERLINE ST ELEVATION, ANTEROLATERAL LEADS EKG Impression: COMPARED WITH 09/24/2017 AT 9:02 A.M., PACING IS NOW PRESENT. ANTEROLATERAL ST EKG Impression: ELEVATIONS ARE IMPROVED Electronically Signed By: Abida Schmitt 26-Sep-2017 14:25:56
[2017-09-26] MEDS: FUROSEMIDE 40 MG TAB PO SCH (12:54)
--- NOTE | 2017-09-26 13:58 | ASMTCMCOM ---
CM Note CM Note Notes: Met with pt and pt's dtr Erin. They would like pt to go SNF for a week or so at [place]. Erin wants either [facility] or [facility]. Faxed clinicals to both. CM to follow. Date Signed: 09/26/2017 01:58 PM Electronically Signed By:Sherry Whitfield LCSW
--- NOTE | 2017-09-26 17:31 | HOSPPROG ---
Hospitalist Progress Note Assessment/Plan: 86-year-old female presented with acute coronary syndrome and subsequent STEMI. She is status post stents by Dr. Beasley on 09/21 with a return to catheterization lab on 09/22. Currently she is under medical management with aspirin Effient beta blockers and Plavix. She has known valvular heart disease with severe and moderate AI eye. Remotely she is status post permanent pacemaker, history of proximal atrial fibrillation, rheumatoid arthritis as well as hypertension and dyslipidemia. Today she complains of some shortness of breath with a prior chest x-ray showing congestion and right pleural effusion. Repeat chest x-ray x-ray will be obtained. She may require small dose of Lasix. -Acute coronary syndrome found to have an 80% LAD lesion w/ leukocytosis, back pain as presenting anginal sx in with return to director geophysical laboratory on 09/22 2017 for STEMI. Patient had coronary stents by Dr. Beasley on 09/21 and return to catheterization lab on 09/22. She is continuing on medical management and will be followed by Dr. Rene Rios. Current LV EF is 35-40%. -valvular heart disease with severe aortic stenosis and moderate aortic regurgitation with permanent pacemaker -Hypertension. Continue home beta-manju -anemia, iron deficiency. Will be placed on iron therapy. - Aortic stenosis and insufficiency. Will likely require some delay in TAVR given severity of above - staging CUS/CTA w/o remarkable findings - Suspected atelectasis. IS, place on o2 - Nausea. Unclear etiology, patient was symptomatic yesterday prior to STEMI and again today, treating supportively w/ anti-emetics but also evaluating for angina as above - cont on IVF this evening given contrast load yesterday and poor oral intake today Diet. IVF, cardiac Prophylaxis. High risk patient, Lovenox 40 Code. Full per patient, daughter is MD UMANZOR Plan: Possible smoke dose of Lasix, repeat chest x-ray, possible discharge tomorrow. Will check troponin for decline relative to her complaint of shortness of breath this evening. Subjective: Reports she is feeling some shortness of breath without cough fever nausea vomiting her appetite is reduced. Objective: Vital Signs Temp Pulse Resp BP Pulse Ox 36.4 C 84 16 101/62 90 L 09/26/17 16:00 09/26/17 16:00 09/26/17 16:00 09/26/17 16:09/26/17 16:00 Laboratory Results 09/26/17 04:14 09/26/17 04:14 09/25/17 09/26/17 09/27/17 05:59 05:59 05:59 Intake Total 400 440 Output Total 600 600 200 Balance -200 -160 -200 PT 13.7 SEC (12.0-15.0) 09/23/17 04:30 INR 1.03 (0.83-1.16) 09/23/17 04:30 - Time Spent With Patient Time Spent with Patient: greater than 35 minutes Time Spent with Patient: Greater than 35 minutes spent on this patients care, greater than 50% of time spent counseling, educating, and coordinating care regarding the above mentioned plan. - Pending Discharge Pending Discharge Within 24 Hours: Yes Pending Discharge Date: 09/27/17 Pending Discharge Time: 11:00 - Physical Exam Constitutional: no apparent distress, chronically ill appearing, cachectic Eyes: PERRL, anicteric sclera Ears, Nose, Mouth, Throat: moist mucous membranes, hearing normal Cardiovascular: systolic murmur, irregularly irregular, diastolic murmur, JVD Respiratory: no respiratory distress, reduced air movement, inspiratory crackles , dullness to percussion Gastrointestinal: normoactive bowel sounds, soft, non-tender abdomen, no palpable masses Genitourinary: no bladder fullness Skin: warm Musculoskeletal: generalized weakness Neurologic: AAOx3, CN II-XII Intact Psychiatric: interacting appropriately ICD10 Worksheet Patient Problems: Problems Problem Status Onset Acute coronary syndrome Acute
[2017-09-26] MEDS: METOPROLOL SUCCINATE XR 25 MG TAB PO SCH (22:27)
[2017-09-27] MEDS: CALCIUM CARB W/VIT D 500 MG TAB PO SCH (08:42)
[2017-09-27] MEDS: MULTIVITAMINS 1 EACH TAB PO SCH (08:42)
[2017-09-27] MEDS: FUROSEMIDE 40 MG TAB PO SCH (08:42)
[2017-09-27] MEDS: CLOPIDOGREL BISULFATE 75 MG TAB PO SCH (08:42)
[2017-09-27] MEDS: FERROUS SULFATE 325 MG TAB PO SCH (08:42)
[2017-09-27] MEDS: ENOXAPARIN 40 MG/0.4 ML SYR SC SCH (08:43)
[2017-09-27] MEDS: ATORVASTATIN CALCIUM 10 MG TAB PO SCH (08:43)
[2017-09-27] MEDS: ASPIRIN EC 325 MG TAB PO SCH (08:43)
[2017-09-27] MEDS: SENNOSIDES/DOCUSATE SODIUM TAB PO SCH (08:43)
--- NOTE | 2017-09-27 10:15 | ASMTCMCOM ---
CM Note CM Note Notes: Both [facility] and [facility] are interested in taking pt pending evals and ins verification. Dtr has not made final decision yet. CM to follow. Date Signed: 09/27/2017 10:14 AM Electronically Signed By:Sherry Whitfield LCSW
[2017-09-27] MEDS: ACETAMINOPHEN 325 MG TAB PO PRN (10:36)
--- NOTE | 2017-09-27 11:13 | PDCARPN ---
Cardiology Progress Note Assessment/Plan: Assessment/plan: 86-year-old female with severe aortic stenosis and moderate aortic regurgitation. She has a permanent pacemaker, paroxysmal atrial arrhythmias, rheumatoid arthritis as well as hypertension and dyslipidemia. She was admitted September 21 with interscapular discomfort concerning for angina. She underwent coronary angiography demonstrating 80% mid LAD lesion that was treated by Dr. Logan Beasley with two Synergy stents. On 09/22 she developed chest and left arm pain with evidence of lateral DUAEN. Taken emergently to environmental laboratory technician by Dr. Rios. D1 was thrombosed. This was partially intervened upon but the LAD became compromised and required multiple additional stents to the LAD. Peak trop 129. Decrement in LVEF to 35-40% 1. Valvular heart disease: She has been evaluated for TAVR She is not a candidate for surgical aortic valve replacement, per Dr. Logan New. At this point, TAVR on hold due to STEMI. Follow up with Dr. Schmidt. It is likey that her acute STEMI and resultant CMP will make TAVR risk prohibitive. She has had her pre procedure carotid ultrasound preTAVR CT scans this admission. 2. Coronary disease: Status post PCI of the LAD on September 21 and as well as intervention to thrombosed D1 on 09/22. She is on DAPT with ASA 325 and Plavix 75. Continue statin and beta-manju. Plavix genetic testing shows that she is a poor metabolizer; however, she has not had recurrent clinical events and I prefer to not switch antiplatelet agents given the unclear clinical significance of plavix genotyping. Not on HEENA-I due to relatively low BP. Could consider HEENA-I as an outpatient. 3. CMP/CHF: Did receive 2 days of IV diuretics but developed hypotesion. Received oral Lasix today. Will discharge on a dose of only 20 mg daily. Cont Toprol. Consider HEENA-inhibitor as per 2. 4. Hypertension: With some hypotension. This is now stabilized. Continue beta-manju 5. Permanent pacemaker and intermittent atrial fibrillation. She has previously declined systemic anticoagulation. This can be readdressed as outpatient and is now complicated by the need for alf DAPT and ongoing anemia. Pacemaker check today as she is having some pacing spikes with non capture. 6. Non flow-limiting carotid disease seen on recent ultrasound. Continue aspirin and statin. 7. Anemia: Abd/pelvic CT was negative for RP bleed. No abdominal or pelvic masses seen on imaging. FOBT negative. Iron studies showed iron deficiency. Hct stable today. Iron has been started. Follow-up with Dr. Andino statin as an outpatient. Start PPI. 8. Dyslipidemia: Continue statin. LDL is at goal. From a cardiac standpoint she is ready for discharge to rehab. Discussed with nursing staff and patient's family. Greater than 30 minutes was spent in chart review and direct patient care. 09/27/17 11:21 Subjective: She does not have dyspnea at rest. She is profoundly fatigued and frustrated by this. No chest pain or arm pain. Persistent lower back pain improved with Tylenol Reviewed/Discussed With: family, multidisciplinary team Time Spent With Patient: 20 minutes Objective: Vital Signs (8 Hrs) Temp Pulse Resp BP Pulse Ox 09/27/17 08:00 93 16 131/70 H 99 09/27/17 04:00 36.6 C 77 16 97/54 L 99 Intake/Output (24 Hrs) 09/26/17 09/27/17 09/28/17 05:59 05:59 05:59 Intake Total 440 700 400 Output Total 600 450 50 Balance -160 250 350 Intake: Oral (ml) 440 700 400 Output: Urine (ml) 600 450 50 Toilet 600 450 50 Other: Weight 48 kg 47.9 kg Number of Voids Toilet 2 2 Number of Stools Diapers/Briefs 1 Toilet 1 No acute distress. Fatigued JVP 10 cm of water. Regular rhythm with occasional ectopy. Aortic stenosis murmur Lungs clear bilaterally without wheezes rhonchi or rales No lower extremity edema Chest x-ray reviewed: Persistent bilateral small pleural effusions Result Diagrams: 09/26/17 04:14 09/26/17 04:14 Cardiac Labs: Cardiac Lab Results (72 Hrs) 09/26/17 09/25/17 13:13 11:24 Troponin I 28.100 H 40.300 H EKG: Reviewed Telemetry: Sinus rhythm. PAF. Occasional ventricular pacing. There are pacing spikes that appeared to be non capture as well. ICD10 Worksheet Patient Problems: Problems Problem Status Onset Acute coronary syndrome Acute
[2017-09-27] MEDS ORDERED: PANTOPRAZOLE SODIUM 40 MG TAB PO SCH (11:30)
--- NOTE | 2017-09-27 12:00 | ASMTCMCOM ---
CM Note CM Note Notes: [facility]. DC likely tomorrow. CM to follow. Date Signed: 09/27/2017 11:59 AM Electronically Signed By:Sherry Whitfield LCSW
[2017-09-27 13:40] VITALS: BP 90/57; PULSE 76; RESP 14; TEMP 97.5; O2SAT 96
--- NOTE | 2017-09-27 14:32 | PDIAF ---
- Diagnosis Code Status: Full Code - Medication Management Discharge Medications: Medications to Continue on Transfer Atorvastatin Calcium [Lipitor 10 mg (*)] 10 mg PO DAILY 05/06/13 [Last Taken ] Calcium Citrate W/Vit D [Citracal + D] 315 mg PO BID 05/06/13 [Last Taken ] Metoprolol Succinate Xr [Toprol Xl 25 mg (*)] 12.5 mg PO HS 05/06/13 [Last Taken 09/20/17] Clobetasol 0.05% [Temovate Cream] 1 stiven TP DAILY PRN 09/21/17 [Last Taken Unknown] Diclofenac Sodium 1% [Voltaren Gel (*)] 1 stiven TP QID PRN 09/21/17 [Last Taken Unknown] Herbals/Supplements -Info Only 1 ea PO DAILY 09/21/17 [Last Taken Unknown] Multivitamins [Multivitamin (*)] 1 each PO DAILY 09/21/17 [Last Taken 09/21/17] Aspirin EC [Aspirin EC 325 mg (*)] 325 mg PO DAILY #100 tab 09/27/17 [Last Taken Unknown] Clopidogrel Bisulfate [Plavix (*)] 75 mg PO DAILY #30 tab 09/27/17 [Last Taken Unknown] Ferrous Sulfate [Ferrous Sulf 325 MG (*)] 325 mg PO BID #60 tab 09/27/17 [Last Taken Unknown] Furosemide [Lasix 20 MG (*)] 20 mg PO DAILY #30 tab 09/27/17 [Last Taken Unknown ] Discharge Medications: Refer to the Discharge Home Medication list for PRN reason. - Orders Services needed: Registered Nurse, Certified Case Investigator, Physical Therapy, Occupational Therapy Diet Recommendation: sodium restricted Diet Texture: Regular Texture Diet - Labs/Radiology CBC w/diff Date: 10/02/17 CMP Date: 10/02/17 - Follow Up Care Current Providers and Referrals: LENNOX SMALL [Primary Care Provider] - As per Instructions (Patient admitted for CHF and rhythm issues; discharged to [facility]) Abida Schmitt MD [Medical Doctor] - follow up in 2 weeks
--- NOTE | 2017-09-27 15:05 | GDS ---
[f rep st] DISCHARGE SUMMARY NEW AND ACUTE DIAGNOSES: 1. ST-elevation myocardial infarction and status post PCI of the LAD on September 21 and . 2. Valvular heart disease, with known severe aortic stenosis and moderate aortic insufficiency. 3. Congestive heart failure, systolic, compensated at the time of discharge. 4. Hypertension. 5. Permanent pacemaker, with known intermittent atrial fibrillation. Patient has declined systemic anticoagulation. 6. Anemia of unclear origin, iron deficiency in nature, currently on iron supplementation. 7. Dyslipidemia. She will continue on statin therapy. CONSULTATION: Cardiology. PROCEDURES: 1. Echocardiogram on 09/21, showing an EF of 76%, normal RV, and a dilated left atrium, with moderate aortic valve regurgitation and severe aortic valve calcification. 2. Carotid Doppler on 09/21, showing bilateral plaque formation, more pronounced on the left, with no evidence of hemodynamically significant stenosis. There had been progression noted in the extent of the plaque formation since a prior study of 2010. 3. Left heart catheterization with coronary angiography, demonstrating a mid LAD with 80% stenosis. 4. Stent placement in the LAD by Dr. Logan Beasley. CT angio of the chest for evaluation of severe aortic stenosis under the TAVR protocol. 5. CT of the chest and CTA of the chest and thorax. 6. Coronary catheterization and selective coronary angiogram were performed, secondary to an LAD subacute stent thrombosis. Findings were successful balloon angioplasty and stent implantation for a lateral wall CT related in LAD and subsequent repair of a subacute stent thrombosis of a tortuous LAD. 7. Echocardiogram showing an ejection fraction had now declined to 35% to 40% secondary to the acute STEMI. HOSPITAL COURSE: This 86-year-old female presented with a complaint of chest pain. She was found to have an elevated troponin, and coronary angiography demonstrated an 80% lesion in the LAD. A stent was initially placed, but she then restenosed, and a 2nd coronary angiography and a repeat stent was then placed with the 1st stent being reopened. Echocardiogram initially showed an EF of 75% which, with the STEMI had declined to 35% to 40%. She was treated with mild diuresis, as she did not tolerate strong diuresis due to hypotension. She has known severe and moderate AI. Initially, she was considered for TAVR procedure. Yet, as a result of the recent STEMI, this will need to be delayed. CHF was present and treated with Lasix. Her EF on last echo was 35% to 40%. The patient has known hypertension but was hypotensive mostly during this hospitalization, secondary to the acute coronary event. Gentle diuresis is being restarted. Her antihypertensives will be gently also restarted at discharge. Anemia was noted, though the patient did not require any transfusions. It is an iron-deficiency anemia, and iron was started. CT angio of the abdomen did not reveal any source of the decline in her hemoglobin, and it was felt to be dilutional. Patient has known intermittent paroxysmal atrial fibrillation by interrogation of her pacemaker. She has previously refused anticoagulation and now, with the recent stent placement and the use of dual anti-platelet therapy, this adds an increased risk of bleeding in this elderly female. Thus, her treatment for PAF will be with dual anti-platelet therapy for her coronary artery disease, and full dose anticoagulation will not be employed. It will not be employed to the risk of bleeding. DISCHARGE MEDICATIONS: New medications are Lasix 20 mg daily, ferrous sulfate 325 mg b.i.d., Plavix 75 mg daily, ASA 325 mg daily. Her continued medications are Toprol-XL 25 mg tablet 12.5 mg p.o. h.s., Lipitor 10 mg daily, calcium with vitamin D 315 mg b.i.d., Clobetasol cream 0.05% to be applied to the skin of the affected area, herbal supplementation, multivitamin daily, Voltaren Gel to be applied q.i.d. p.r.n. for pain. Her discontinued medications are aspirin 81 mg a day and ibuprofen 200 mg p.o. b.i.d. PLAN: The patient will be [facility]. Follow up will be through her PCP, Dr. Keysha Greenfield and, for Cardiology, it will be Dr. Abida Schmitt. Instructions were given that she should follow up within the next 1-2 weeks. Note that the patient does have a history of hypertension, yet her only medications for hypertension are beta blockers and a small dose of Lasix. Also note that she is not on full dose anticoagulation due to the risk of bleeding with dual anti-platelet therapy in this elderly lady. TIME: This discharge required 50 minutes, greater than 50% to clinical mental health counselor, coordinate care. Her daughter and son-in-law were present in the room, and all questions were answered of the patient and family. /[id number]/MODL MTDD
[2017-09-28] MEDS ORDERED: FUROSEMIDE 20 MG TAB PO SCH (09:00)
== END 2017-09-27 15:47 | DRG 246 ==
LOC: EDUNIT# → F2W 12:49 → F2N 09-22 17:50 → OBSVTOIN 09-22 20:18 → F2W 09-23 15:45
PROVIDERS: ADMIT Internal Medicine; ATTEND Internal Medicine Cardiovascular Disease
PROC: B2111ZZ Fluoroscopy of Multiple Coronary Arteries using Low Osmolar Contrast (ICD-10-PCS; 2017-09-21)
PROC: 4A023N7 Measurement of Cardiac Sampling and Pressure, Left Heart, Percutaneous Approach (ICD-10-PCS; 2017-09-21)
PROC: 027037Z Dilation of Coronary Artery, One Artery with Four or More Drug-eluting Intraluminal Devices, Percutaneous Approach (ICD-10-PCS; principal; 2017-09-22)
PROC: B2111ZZ Fluoroscopy of Multiple Coronary Arteries using Low Osmolar Contrast (ICD-10-PCS; principal; 2017-09-22)
DX: I21.3 ST elevation (STEMI) myocardial infarction of unspecified site (principal); I50.20 Unspecified systolic (congestive) heart failure; I35.2 Nonrheumatic aortic (valve) stenosis with insufficiency; I11.0 Hypertensive heart disease with heart failure; I48.0 Paroxysmal atrial fibrillation; D50.9 Iron deficiency anemia, unspecified; E78.5 Hyperlipidemia, unspecified; M06.9 Rheumatoid arthritis, unspecified; Z87.891 Personal history of nicotine dependence; Z95.0 Presence of cardiac pacemaker
CPT/HCPCS: 81225-90; 97116-GP; 97161-GP; 97165-GO; 97168-GO; 97530-GP; 97535-GO; C1725; C1769; C1874; C1887; C9600; C9601; C9606; G0378; G8978-GP-CJ; G8979-GP-CI; G8987-GO-CI; G8987-GO-CJ; G8988-GO-CI; G8989-GO-CI; J0130; J0583; J1644; J1650; J1940; J2250; J2405; J3010; Q9967

== ENCOUNTER 2017-09-30 11:36 | Observation (INO) | payer OTHER ==
--- NOTE | 2017-09-30 11:47 | CPEKG ---
Heart Rate: 75 RR Interval: 800 QRSD Interval: 104 QT Interval: 360 QTC Interval: 402 QRS Bunn: 63 T Wave Bunn: -36 EKG Severity - ABNORMAL ECG - EKG Impression: AFIB/FLUT AND V-PACED COMPLEXES EKG Impression: LOW VOLTAGE IN FRONTAL LEADS EKG Impression: NONSPECIFIC REPOL ABNORMALITY, DIFFUSE LEADS EKG Impression: ST ELEVATION, CONSIDER LATERAL INJURY Electronically Signed By: Judith Sun 30-Sep-2017 15:05:15
[2017-09-30 11:58] LABS: PLATELET COUNT 409 10^3/uL (150-400)
--- NOTE | 2017-09-30 13:11 | EDPHY ---
H & P Time Seen by Provider: 09/30/17 12:31 HPI/ROS: CHIEF COMPLAINT: Shortness of breath, left-sided low back pain HISTORY OF PRESENT ILLNESS: 86-year-old female with CAD, s/p recent LAD stent presents with shortness of breath and left-sided back pain. She was admitted for acute coronary syndrome on 09/21/2017 and had an LAD stent placed. She was [place] [facility]. She was doing fairly well until 2 days ago. Since then she has had gradually increasing shortness of breath, especially with exertion. She now feels short of breath at rest. No chest pain. Associated with left-sided lower back discomfort. The back discomfort increases with movement and is better with palpation. 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 Smoking Status: Former smoker Physical Exam: General Appearance: Alert, eyes closed, appears uncomfortable Eyes: Pupils equal and round, no conjunctival pallor or injection ENT, Mouth: Mucous membranes moist Neck: Normal inspection Respiratory: Tachypnea, rales at bases Cardiovascular: Occasional irregular beat Gastrointestinal: Abdomen is soft and nontender Neurological: Alert and oriented, nonfocal exam Skin: Warm and dry, no rash Extremities: Nontender Psychiatric: Flat affect Constitutional: Initial Vital Signs Temperature (C) 36.5 C 09/30/17 12:02 Heart Rate 74 09/30/17 12:02 Respiratory Rate 20 09/30/17 12:02 Blood Pressure 120/81 H 09/30/17 12:02 O2 Sat (%) 94 09/30/17 12:02 O2 Delivery Mode Room Air Allergies/Adverse Reactions: No Known Allergies Allergy (Verified 09/21/17 12:24) Home Medications: Medication Instructions Recorded Atorvastatin Calcium [Lipitor 10 10 mg PO HS 05/06/13 mg (*)] Calcium Citrate W/Vit D [Citracal 315 mg PO DAILY 05/06/13 + D] Metoprolol Succinate Xr [Toprol Xl 12.5 mg PO HS 05/06/13 25 mg (*)] Clobetasol 0.05% [Temovate Cream] 1 stiven TP DAILY PRN 09/21/17 Diclofenac Sodium 1% [Voltaren Gel 1 stiven TP QID PRN 09/21/17 (*)] Multivitamins [Multivitamin (*)] 1 each PO DAILY 09/21/17 Aspirin EC [Aspirin EC 325 mg (*)] 325 mg PO DAILY #100 tab 09/27/17 Clopidogrel Bisulfate [Plavix (*)] 75 mg PO DAILY #30 tab 09/27/17 Ferrous Sulfate [Ferrous Sulf 325 325 mg PO BID #60 tab 09/27/17 MG (*)] Acetaminophen [Tylenol 325mg (*)] 650 mg PO TID 09/30/17 Acetamn/Diphenhydramine 500/25 1 each PO HS PRN 09/30/17 [Tylenol PM (*)] Furosemide [Lasix 20 MG (*)] 10 mg PO DAILY 09/30/17 Lidocaine 5% [Lidoderm 5% Patch 1 ea TD DAILY patch 10/01/17 (*)] Patch Removal 1 ea TD DAILY21 #0 patch 10/01/17 Medical Decision Making - Diagnostics EKG Interpretation: EKG interpreted by me reveals a paced rhythm, rate 75, low voltage in the frontal leads, slight ST segment elevation in V6, similar to EKG dated 09/26/2017 Imaging Results: Chest x-ray independently reviewed by me reveals increased pulmonary vasculature. ED Course/Re-evaluation: This patient is a challenging historian, possibly secondary to intranasal fentanyl given in route. Her main complaint is left-sided low back pain, but she is quite short of breath on exam. Concern for congestive heart failure. Old medical records reviewed. Echo on 09/23/2017 reveals ejection fraction of 35 -40%, moderate AR. Laboratory studies reviewed. Troponin is 8, which is most likely a declining troponin value from recent acute coronary syndrome. EKG reveals no evidence of acute ischemia and I doubt acute coronary syndrome. However, the troponin will certainly need to be repeated while she is an inpatient. BNP greater than 17, 000, with no recent BNP for comparison. Chest x-ray reveals increased pulmonary vasculature. Lasix [address] Logan Bolden was consulted and will see the patient. The hospitalist service was consulted for admission for CHF. Differential Diagnosis: Differential diagnosis includes though it is not limited to pneumonia, pneumothorax, pulmonary embolism, aortic dissection, pericarditis, acute coronary syndrome. - Data Points Laboratory Results: Laboratory Results 09/30/17 11:50 09/30/17 11:50 Medications Given: Discontinued Medications Acetaminophen (Tylenol) 650 mg PO TID NEVIN Stop: 03/29/18 15:59 Last Admin: 10/01/17 17:15 Dose: 650 mg Aspirin Buffered (Aspirin Ec) 325 mg PO DAILY NEVIN Stop: 03/30/18 08:59 Last Admin: 10/01/17 09:09 Dose: 325 mg Atorvastatin Calcium (Lipitor) 10 mg PO HS NEVIN Stop: 03/29/18 20:59 Last Admin: 09/30/17 21:00 Dose: 10 mg Calcium/Vitamin D (Calcium Carb W/Vit D) 500 mg PO DAILY NEVIN Stop: 03/30/18 08:59 Last Admin: 10/01/17 09:09 Dose: 500 mg Clopidogrel Bisulfate (Plavix) 75 mg PO DAILY NEVIN Stop: 03/30/18 08:59 Last Admin: 10/01/17 09:09 Dose: 75 mg Enoxaparin Sodium (Lovenox) 40 mg SC DAILY NEVIN Stop: 03/30/18 08:59 Last Admin: 10/01/17 09:11 Dose: 40 mg Ferrous Sulfate (Ferrous Sulfate) 325 mg PO BID NEVIN Stop: 03/29/18 20:59 Last Admin: 10/01/17 09:09 Dose: 325 mg Furosemide (Lasix Injection) 20 mg IVP EDNOW ONE Stop: 09/30/17 13:53 Last Admin: 09/30/17 14:47 Dose: 20 mg Lidocaine (Lidoderm 5%) 1 ea TD DAILY NEVIN Stop: 03/30/18 15:56 Last Admin: 10/01/17 17:14 Dose: 1 ea Metoprolol Succinate (Toprol Xl) 12.5 mg PO HS NEVIN Stop: 03/29/18 20:59 Last Admin: 09/30/17 20:58 Dose: 12.5 mg Multivitamins (Tab-A-Jessica) 1 each PO DAILY NEVIN Stop: 03/30/18 08:59 Last Admin: 10/01/17 09:09 Dose: 1 each Departure - Departure Disposition: [facility] Clinical Impression: Congestive heart failure Qualifiers: Congestive heart failure type: systolic Congestive heart failure chronicity: acute Qualified Code(s): I50.21 - Acute systolic (congestive) heart failure Condition: Good
[2017-09-30] MEDS ORDERED: FUROSEMIDE 20 MG/2 ML VIAL IVP ONE (13:52)
[2017-09-30] MEDS ORDERED: CLOBETASOL 0.05% 15 GM CRTUBE TP PRN (14:28)
[2017-09-30] MEDS ORDERED: ACETAMN/DIPHENHYDRAMINE 500/25MG TAB PO PRN (14:28)
[2017-09-30] MEDS ORDERED: DICLOFENAC SODIUM 1% 100 GM GEL TP PRN (14:28)
[2017-09-30] MEDS ORDERED: ACETAMINOPHEN 325 MG TAB PO PRN (14:29)
[2017-09-30] MEDS ORDERED: ONDANSETRON 4 MG/2 ML VIAL IVP PRN (14:29)
[2017-09-30] MEDS ORDERED: ALBUTEROL 3 ML DEYVIAL IH PRN (14:29)
[2017-09-30] MEDS ORDERED: ONDANSETRON DISINTEGRATING 4 MG TAB PO PRN (14:29)
--- NOTE | 2017-09-30 14:29 | ASMTLACE ---
SAUL Acuity / Level of Answers: Yes Care: Did the patient have an inpatient admission? Comorbidities - select Answers: Congestive heart failure all that apply # of Emergency department Answers: 1-2 visits in the last 6 months Score: 6 Date Signed: 09/30/2017 02:29 PM Electronically Signed By:Cinthia Gay RN
--- NOTE | 2017-09-30 14:48 | PDGENHP ---
History and Physical - Chief Complaint SOB - History of Present Illness 86 yo female with recent hospitalization for STEMI s/p PCI with LAD on Sep 21 who was discharged to a fpc facility returns with SOB and left sided back pain. She did not fall 2 days ago as previously reported. C/O SOB worse with exertion. She also has mid to left mid back pain which is worse when taking a deep breath. Lasix 20mg IV x 1 was given in the E.D. She denies CP or palpitations. Afebrile. PMHx: STEMI, CAD, Afib, PPM, severe , Moderate AI, HTN, RA, Iron deficiency anemia, CHF-Systolic PSHx: PPM, left sided mastectomy with implant, Right femur ORIF in 2010 FmHx: father with CAD Soc: former tobacco smoker, social ETOH, no drug use Studies: CXR with signs of fluid overload (personally reviewed) TTE 09/23: EF 35 %, anteroseptal hypokinesis, apical hypokinesis, LV regional wall abnormalities, valvular disease History Information - Allergies/Home Medication List Allergies/Adverse Reactions: No Known Allergies Allergy (Verified 09/21/17 12:24) Home Medications: Atorvastatin Calcium [Lipitor 10 mg (*)] 10 mg PO HS 05/06/13 [Last Taken ] Calcium Citrate W/Vit D [Citracal + D] 315 mg PO DAILY 05/06/13 [Last Taken ] Metoprolol Succinate Xr [Toprol Xl 25 mg (*)] 12.5 mg PO HS 05/06/13 [Last Taken 09/20/17] Clobetasol 0.05% [Temovate Cream] 1 stiven TP DAILY PRN 09/21/17 [Last Taken Unknown] Diclofenac Sodium 1% [Voltaren Gel (*)] 1 stiven TP QID PRN 09/21/17 [Last Taken Unknown] Multivitamins [Multivitamin (*)] 1 each PO DAILY 09/21/17 [Last Taken 09/21/17] Acetaminophen [Tylenol 325mg (*)] 650 mg PO TID 09/30/17 [Last Taken Unknown] Acetamn/Diphenhydramine 500/25 [Tylenol PM (*)] 1 each PO HS PRN 09/30/17 [Last Taken Unknown] Furosemide [Lasix 20 MG (*)] 10 mg PO DAILY 09/30/17 [Last Taken Unknown] I have personally reviewed and updated: medical history, social history - Past Medical History Additional medical history: Moderate aortic insufficiency and back stenosis, currently being evaluated for TAVR. Hypertension. Diastolic dysfunction - Surgical History Additional surgical history: Permanent pacemaker for Mobitz type 2 in 2011. Left mastectomy with implant. Right femur ORIF in 2010 - Family History Additional family history: Father with myocardial infarction at age 70, no family history of venous thromboembolism - Social History Smoking Status: Former smoker Additional social history: Resides at [facility] Review of Systems Review of Systems: ROS: 10pt was reviewed & negative except for what was stated in HPI & below Physical Exam Physical Exam: Temp Pulse Resp BP Pulse Ox 36.5 C 74 20 120/81 H 94 09/30/17 12:02 09/30/17 12:02 09/30/17 12:02 09/30/17 12:02 09/30/17 12:02 Constitutional: no apparent distress Eyes: PERRL, EOMI Ears, Nose, Mouth, Throat: moist mucous membranes, hearing normal Cardiovascular: regular rate and rhythym, edema (trace), No JVD Respiratory: no respiratory distress, reduced air movement Gastrointestinal: normoactive bowel sounds Skin: warm Musculoskeletal: generalized weakness Neurologic: AAOx3 Psychiatric: interacting appropriately, not anxious, not encephalopathic Lab Data & Imaging Review 09/30/17 11:50 09/30/17 11:50 WBC 10.70 10^3/uL (3.80-9.50) H 09/30/17 11:50 RBC 3.49 10^6/uL (4.18-5.33) L 09/30/17 11:50 Hgb 11.5 g/dL (12.6-16.3) L 09/30/17 11:50 Hct 33.3 % (38.0-47.0) L 09/30/17 11:50 MCV 95.4 fL (81.5-99.8) 09/30/17 11:50 MCH 33.0 pg (27.9-34.1) 09/30/17 11:50 MCHC 34.5 g/dL (32.4-36.7) 09/30/17 11:50 RDW 16.2 % (11.5-15.2) H 09/30/17 11:50 Plt Count 409 10^3/uL (150-400) H 09/30/17 11:50 MPV 9.1 fL (8.7-11.7) 09/30/17 11:50 Neut % (Auto) 80.9 % (39.3-74.2) H 09/30/17 11:50 Lymph % (Auto) 8.7 % (15.0-45.0) L 09/30/17 11:50 Monona % (Auto) 9.0 % (4.5-13.0) 09/30/17 11:50 Eos % (Auto) 0.5 % (0.6-7.6) L 09/30/17 11:50 Baso % (Auto) 0.2 % (0.3-1.7) L 09/30/17 11:50 Nucleat RBC Rel Count 0.4 % (0.0-0.2) H 09/30/17 11:50 Absolute Neuts (auto) 8.67 10^3/uL (1.70-6.50) H 09/30/17 11:50 Absolute Lymphs (auto) 0.93 10^3/uL (1.00-3.00) L 09/30/17 11:50 Absolute Monos (auto) 0.96 10^3/uL (0.30-0.80) H 09/30/17 11:50 Absolute Eos (auto) 0.05 10^3/uL (0.03-0.40) 09/30/17 11:50 Absolute Basos (auto) 0.02 10^3/uL (0.02-0.10) 09/30/17 11:50 Absolute Nucleated RBC 0.04 10^3/uL (0-0.01) H 09/30/17 11:50 Immature Gran % 0.7 % (0.0-1.1) 09/30/17 11:50 Immature Gran # 0.07 10^3/uL (0.00-0.10) 09/30/17 11:50 Sodium 137 mEq/L (135-145) 09/30/17 11:50 Potassium 4.2 mEq/L (3.5-5.2) 09/30/17 11:50 Chloride 104 mEq/L (97-110) 09/30/17 11:50 Carbon Dioxide 19 mEq/l (22-31) L 09/30/17 11:50 Anion Gap 14 mEq/L (8-16) 09/30/17 11:50 BUN 22 mg/dL (7-23) 09/30/17 11:50 Creatinine 0.8 mg/dL (0.6-1.0) 09/30/17 11:50 Estimated GFR > 60 09/30/17 11:50 Glucose 119 mg/dL (70-100) H 09/30/17 11:50 Calcium 9.4 mg/dL (8.5-10.4) 09/30/17 11:50 Troponin I 8.180 ng/mL (0.000-0.034) H 09/30/17 11:50 NT-Pro-B Natriuret Pep 21393 pg/mL (0-450) H 09/30/17 11:50 Assessment & Plan Assessment: #CHF-Exacerbations, Systolic #Recent STEMI with LAD stent on Sep 21, with persistent elevated troponin which is trending down -Last Trop checked on 09/26 was 28 #Back pain, likely due to pulm vascular congestion #Valvular heart disease #PPM with known intermittent Afib -Refused AC previously -at high risk for bleeding given she is on 2 antiplatelets, Plavix and Aspirin ( Full dose) #HLD: cont statin #Hx of HTN -on BB, current normatensive Plan: -Observation -Overall her volume status looks good -Dr. 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 Should also improve with improved volume status -Restart home meds -Lovenox -Full Code
[2017-09-30] MEDS ORDERED: traMADol 50 MG TAB PO PRN (15:30)
[2017-09-30] MEDS: ACETAMINOPHEN 325 MG TAB PO SCH ×2 (16:11→20:59)
--- NOTE | 2017-09-30 20:44 | GCON ---
[f rep st] CONSULTATION CARDIOLOGY CONSULTATION DATE OF CONSULTATION: 09/30/2017 REASON FOR CONSULTATION: Congestive heart failure. HISTORY OF PRESENT ILLNESS: The patient is a pleasant 86-year-old female who was recently discharged from [facility]. She had been admitted last week on September 21 for evaluation for possible candidate for TAVR aortic valve replacement in the setting of known history of severe aortic stenosis with peak velocity of greater than 4 m/sec. Diagnostic left heart catheterization demonstrated 80% stenosis of the mid LAD. She underwent successful PCI to the mid LAD. She developed an acute myocardial infarction the following day with closure of a diagonal branch. There was successful PCI to the diagonal branch. This resulted in restenoses of the LAD requiring additional stent deployment. She did develop a decline in her ejection fraction which preoperatively was approximately 75%, declined to 30% to 35% at the time of her transfer to a rehab facility. She has been doing well at rehab when today she has complained of lower back pain. Her pain in her lower back intensified prompting her to return to [facility] for further evaluation. She has denied complaints of increasing shortness of breath or dyspnea. She denies complaints of PND, orthopnea, or increasing lower extremity edema. She has no complaints of chest pain, chest pressure, palpitations, dizziness, lightheadedness, near syncope, or syncope. PAST MEDICAL HISTORY: Notable for: 1. Coronary artery disease as outlined above. 2. Severe aortic stenosis with peak velocity greater than 4 m/sec. 3. History of hypertension. 4. History of paroxysmal atrial fibrillation. She has refused anticoagulation. She is currently in atrial fibrillation at the time of my exam. She has permanent pacemaker in place. 5. She has a known history of anemia of unclear origin and history of hyperlipidemia and is currently on statin therapy. MEDICATIONS ON ADMISSION: Include Lasix 10 mg daily, Plavix 75 mg daily, aspirin 81 mg daily, atorvastatin 10 mg daily, metoprolol succinate 12.5 mg at bedtime, ferrous sulfate 325 mg p.o. b.i.d., Voltaren gel 1 application q.i.d., clobetasol, calcium with vitamin D, Tylenol PM q.h.s. p.r.n., and a multivitamin. ALLERGIES TO MEDICATIONS: No known allergies. PHYSICAL EXAMINATION: VITAL SIGNS: Blood pressure 109/78, heart rate of 78 and irregular rhythm, respiratory rate of 20, oxygen saturation 93% on room air. GENERAL: She is awake, alert, oriented, and appropriate. In no apparent distress. NECK: There is no evidence of JVP or carotid bruits. LUNGS: Clear to auscultation bilaterally. CARDIAC: Demonstrates a 2/6 right upper sternal border murmur with nonradiation. Rhythm is irregularly irregular. ABDOMEN: Soft, nontender. EXTREMITIES: There is trace bilateral ankle edema. BACK: She has some mild tenderness to palpation of her lower back at the level of L5- S1. DATA: Chest x-ray demonstrates mild CHF suspected. LABORATORY DATA: Lab work demonstrates white blood cell count of 10.7, hemoglobin 11.5, hematocrit 33.3, platelet count of 409. Sodium 137, potassium 4.2, chloride 104, bicarb 19, BUN 0.8, creatinine 0.8, GFR greater than 60. Troponin 8.18, previous was 28.1 on September 26. BNP 17,200. No previous values for my review. IMPRESSION: 1. History of recent myocardial infarction with percutaneous coronary intervention to both the left anterior descending and diagonal. 2. Ischemic cardiomyopathy with left ventricular ejection fraction of 35%. 3. Severe aortic stenosis. 4. Systolic congestive heart failure. 5. Paroxysmal atrial fibrillation. Has refused anticoagulation. 6. Rheumatoid arthritis. 7. New onset of lower back pain. PLAN: 1. No indication for urgent cardiac intervention. 2. Would recommend conservative treatment with diuretics and maintaining her current cardiac medications. We will continue to follow along with her care at this time. 30 min spent coordinating care . /[id number]/MODL MTDD
[2017-09-30] MEDS: FERROUS SULFATE 325 MG TAB PO SCH (20:59)
[2017-09-30] MEDS ORDERED: ATORVASTATIN CALCIUM 10 MG TAB PO SCH (21:00)
[2017-09-30] MEDS ORDERED: METOPROLOL SUCCINATE XR 25 MG TAB PO SCH (21:00)
[2017-10-01 05:34] LABS: PLATELET COUNT 370 10^3/uL (150-400)
[2017-10-01] MEDS ORDERED: ASPIRIN EC 325 MG TAB PO SCH (09:00)
[2017-10-01] MEDS ORDERED: CALCIUM CARB W/VIT D 500 MG TAB PO SCH (09:00)
[2017-10-01] MEDS ORDERED: ENOXAPARIN 40 MG/0.4 ML SYR SC SCH (09:00)
[2017-10-01] MEDS ORDERED: MULTIVITAMINS 1 EACH TAB PO SCH (09:00)
[2017-10-01] MEDS ORDERED: CLOPIDOGREL BISULFATE 75 MG TAB PO SCH (09:00)
[2017-10-01] MEDS: ACETAMINOPHEN 325 MG TAB PO SCH ×2 (09:09→17:15)
[2017-10-01] MEDS: FERROUS SULFATE 325 MG TAB PO SCH (09:09)
--- NOTE | 2017-10-01 10:33 | PDCARPN ---
Cardiology Progress Note Chief Complaint: Back Pain Assessment/Plan: Assessment: 1. CAD with PCI to LAD and D1 2. Ischemic cardiomyopathy 3. Severe 4. PAF 5. Pacemaker Plan: -no indication for futher cardiac testing -no plan to pursue TAVR at this time. Discussed with pt, she is not interested in TAVR -Recommend she remain on current cardiac medications -I think she is stable to return to Rehab facility 10/01/17 10:33 Subjective: Mrs. Calderon had an uneventful night. No complaints of chest pain, pressure, sob , lazaro, pnd, orthopnea or increasing edema. No events on telemetry. Remains in paf with intermittant paced beats. Vitals stable. Troponin trending down from 8.18 to 5.86. [place] [address] [place] [address]. Time Spent With Patient: 20 min Objective: Vital Signs (8 Hrs) Temp Pulse Resp BP Pulse Ox 10/01/17 07:14 36.3 C 91 20 124/64 H 93 10/01/17 03:51 36.3 C 93 18 103/60 94 Intake/Output (24 Hrs) 09/30/17 10/01/17 10/02/17 05:59 05:59 05:59 Intake Total 600 Output Total 550 200 Balance 50 -200 Intake: Oral (ml) 600 Output: Urine (ml) 550 Bedside Commode 550 Urine/Stool Mix (ml) 200 Toilet 200 Other: Weight 47.1 kg Intake Quantity Yes Sufficient Number of Voids Bedside Commode 1 Toilet 1 Number of Stools Bedside Commode 1 Toilet 1 Result Diagrams: 10/01/17 05:10 10/01/17 05:10 Cardiac Labs: Cardiac Lab Results (72 Hrs) 10/01/17 05:10 Troponin I 5.860 H - Physical Exam Constitutional: WDWN Ears, Nose, Mouth, Throat: moist mucous membranes Cardiovascular: systolic murmur, irregularly irregular Respiratory: clear to auscultate bilat Skin: no rashes Musculoskeletal: no muscular tenderness Neurologic: AAOx3, CN II-XII grossly intact Psychiatric: cooperative, interactive, following commands ICD10 Worksheet Patient Problems: Problems Problem Status Onset Congestive heart failure Acute Acute coronary syndrome Acute
[2017-10-01 11:42] VITALS: PULSE 82
[2017-10-01 15:32] VITALS: BP 106/61; RESP 16; TEMP 97.3; O2SAT 92
--- NOTE | 2017-10-01 15:40 | ASMTCASEMG ---
Living Arrangements What is your living Answers: Alone arrangement? Who do you live with? Type Of Residence What kind of residence do Answers: House you live in? Discharge Plan Comments Coordination Status Comments Notes: Pt is a 86 y/o female admitted for congestive heat failure from [facility]. Pt was recently here at [facility] on 09/22 to 09/27 for chest pain. Therapies are ordered. Pt will most likely d/c back to [facility] when medically stable. Updates sent to [facility]. spoke w/ daughter Erin regarding d/c POC. Daughter reports that pt will most likely be returning to [facility]. CM to follow. Plan: [facility] Date Signed: 10/01/2017 03:40 PM Electronically Signed By:FERMIN Hazel
[2017-10-01] MEDS ORDERED: LIDOCAINE 5% 1 EA PATCH TD SCH (15:57)
--- NOTE | 2017-10-01 16:01 | PDDCSUM ---
Discharge Summary Discharge Summary: DISCHARGE DIAGNOSES: -acute systolic congestive heart failure, responded well to diuretic -recent myocardial infarction status post stent, no evidence of recurrent ischemia or stent failure -severe aortic stenosis; patient does not want to consider TAVR -musculoskeletal back pain, chronic, unchanged from previous -deconditioning with gait instability and fall risk, slowly improving with therapies -paroxysmal atrial fibrillation, stable sinus rhythm at this time, patient declining anticoagulation CONSULTANTS: Dr. Ford while PROCEDURES: Cardiac EKG monitoring HOSPITAL COURSE SUMMARY: This patient had been at this hospital last month with acute myocardial infarction, systolic heart failure, troponins greater than 110. She had stenting which was successful and uncomplicated. Due to significant deconditioning weakness gait instability the patient was transferred this hospital to a alf facility for ongoing rehabilitation which has been going reasonably well. Yesterday however she noted some exertional dyspnea worse than previous, and she has had some ongoing upper lumbar back pain which she was complaining of again yesterday. The back pain did not seem different than previous and there are no radicular symptoms or fevers or urinary symptoms. Here the patient did not have any evidence of any new ischemia or infarction or problems with her stents. There was no arrhythmia she was in sinus rhythm. There was some mild edema and this responded very quickly to 1 dose of IV Lasix and she is back to her baseline fluid status and dyspnea is resolved. She is walking better today though still requiring walker and assistance basically at the baseline where she was couple days ago. On extensive discussion with Cardiology she did not want to reconsider TAVR for her known severe aortic stenosis. She is felt to be stable for transfer back to the nursing facility for ongoing rehabilitation. Because of her ongoing musculoskeletal back pain have added a Lidoderm patch for her comfort so she can get better rest at night. PENDING TEST RESULTS: None MEDICATION CHANGES: Addition of Lidoderm patch to be used at night for her back pain to get better rest FOLLOW-UP PLAN: Ongoing physical rehabilitation at the nursing facility With Cardiology as previously planned at [facility] Greater than 35 minutes bedside and care coordination time today
--- NOTE | 2017-10-01 16:02 | PDIAF ---
- Diagnosis Diagnosis: Systolic CHF, musculoskeletal back pain, recent HI no recurrence Code Status: Do Not Resuscitate - Medication Management Discharge Medications: Medications to Continue on Transfer Atorvastatin Calcium [Lipitor 10 mg (*)] 10 mg PO HS 05/06/13 [Last Taken ] Calcium Citrate W/Vit D [Citracal + D] 315 mg PO DAILY 05/06/13 [Last Taken ] Metoprolol Succinate Xr [Toprol Xl 25 mg (*)] 12.5 mg PO HS 05/06/13 [Last Taken 09/20/17] Clobetasol 0.05% [Temovate Cream] 1 stiven TP DAILY PRN 09/21/17 [Last Taken Unknown] Diclofenac Sodium 1% [Voltaren Gel (*)] 1 stiven TP QID PRN 09/21/17 [Last Taken Unknown] Multivitamins [Multivitamin (*)] 1 each PO DAILY 09/21/17 [Last Taken 09/21/17] Aspirin EC [Aspirin EC 325 mg (*)] 325 mg PO DAILY #100 tab 09/27/17 [Last Taken Unknown] Clopidogrel Bisulfate [Plavix (*)] 75 mg PO DAILY #30 tab 09/27/17 [Last Taken Unknown] Ferrous Sulfate [Ferrous Sulf 325 MG (*)] 325 mg PO BID #60 tab 09/27/17 [Last Taken Unknown] Acetaminophen [Tylenol 325mg (*)] 650 mg PO TID 09/30/17 [Last Taken Unknown] Acetamn/Diphenhydramine 500/25 [Tylenol PM (*)] 1 each PO HS PRN 09/30/17 [Last Taken Unknown] Furosemide [Lasix 20 MG (*)] 10 mg PO DAILY 09/30/17 [Last Taken Unknown] Lidocaine 5% [Lidoderm 5% Patch (*)] 1 ea TD DAILY patch 10/01/17 [Last Taken Unknown] Patch Removal 1 ea TD DAILY21 #0 patch 10/01/17 [Last Taken Unknown] Discharge Medications: Refer to the Discharge Home Medication list for PRN reason. PICC Care - Routine: N/A - Orders Services needed: Registered Nurse, Certified Registered Nurse Bone Marrow Transplant, Master Marine Cargo Inspector , Physical Therapy, Occupational Therapy Diet Recommendation: sodium restricted Diet Texture: Regular Texture Diet Equipment: Walker - Follow Up Care Current Providers and Referrals: LENNOX SMALL [Primary Care Provider] - As per Instructions
[2017-10-01] MEDS ORDERED: PATCH REMOVAL 1 EA PATCH TD SCH (21:00)
--- NOTE | 2017-10-02 10:17 | ASDISCHSUM ---
Discharge Information Plan Status:SNF Medically Cleared to Leave:10/01/2017 Discharge Date:10/01/2017 06:18 PM CM D/C Disposition: ADT D/C Disposition:[facility] Facility Projected Discharge Date:10/02/2017 11:00 AM Transportation at D/C: Discharge Delay Reason: Follow-Up Date:10/02/2017 11:00 AM Discharge Slot: Final Diagnosis: Placement Information Referral Type:*Assisted/SNF Referral ID:[id number] Provider Name:[facility] Address 1:[address] Address 2: City:[place] Selection Factors: State:[place] Patient Contact Information Contact Name:ALESHA Relationship:Son Address:[address] Work Phone: City:[place] Alternate Phone: State/Zip Code:[place] [address] Email: Financial Information Financial Class: Primary Plan Desc:MEDICARE OUTPATIENT Primary Plan Number:[id number] [facility] Secondary Plan Number:[id number] Assessment Information LACE LACE Acuity / Level of Answers: Yes Care: Did the patient have an inpatient admission? Comorbidities - select Answers: Congestive heart failure all that apply # of Emergency department Answers: 1-2 visits in the last 6 months Score: 6 Date Signed: 09/30/2017 02:29 PM Electronically Signed By:Cinthia Gay RN [facility] Initial CM Assessment Living Arrangements What is your living Answers: Alone arrangement? Who do you live with? Type Of Residence What kind of residence do Answers: House you live in? Discharge Plan Comments Coordination Status Comments Notes: Pt is a 86 y/o female admitted for congestive heat failure from [facility]. Pt was recently here at [facility] on 09/22 to 09/27 for chest pain. Therapies are ordered. Pt will most likely d/c back to [facility] when medically stable. Updates sent to [facility]. CM spoke w/ daughter Erin regarding d/c POC. Daughter reports that pt will most likely be returning to [facility]. CM to follow. Plan: Date Signed: 10/01/2017 03:40 PM Electronically Signed By:FERMIN Hazel Case Management Discharge Plan Note Case Management Discharge Discharge Order Complete? Answers: Yes Patient to Obtain Answers: Other Notes: [facility] Medications Transportation Arranged Answers: Other Notes: [facility] W/C Transport will Pick (Date 10/01/2017 06:00 PM & Time) EMTALA Complete Answers: No Case Management Transport Answers: Yes Form Complete Faxed Final Orders Answers: Yes Agency/Facility Transfer Answers: Yes Report Printed & Faxed to Receiving Agency Family Notified Answers: Yes Discharge Comments Notes: CM spoke w/ Dr. Gomez and Kaycee RN regarding d/c POC. Pt is being discharged today back to [facility]. Chey from [facility] arranged transportation via W/C. CM provided Kaycee RN w/ phone number to give report. CM send d/c orders. CM notified daughter regarding d/c. CM available for changes. Plan: Date Signed: 10/01/2017 04:43 PM Electronically Signed By:FERMIN Hazel Intervention Information Intervention Type:*VILLARREAL-Signed Date of Service:10/01/2017 11:33 AM Patient Type:Observation Staff Member:Niecy Licea Hours: Discipline: Severity: Comment:
== END 2017-10-01 18:18 ==
LOC: EDUNIT# → F2W 15:08
PROVIDERS: ADMIT Internal Medicine; ATTEND Internal Medicine
DX: I11.0 Hypertensive heart disease with heart failure (principal); I50.21 Acute systolic (congestive) heart failure; I70.0 Atherosclerosis of aorta; M54.5 Low back pain; R26.89 Other abnormalities of gait and mobility; I48.0 Paroxysmal atrial fibrillation; Z95.0 Presence of cardiac pacemaker; Z87.891 Personal history of nicotine dependence
CPT/HCPCS: 71046; 93005; 97116; 97161; 97165; 99285; G0378; G8978; G8979; G8987; G8988; J1650; J1940

== ENCOUNTER → 2017-11-17 | Outpatient (CLI) | payer OTHER | LOC: BHFA 13:15 | PROVIDERS: ATTEND Internal Medicine Interventional Cardiology | DX: I25.10 Atherosclerotic heart disease of native coronary artery without angina pectoris (principal) ==

== ENCOUNTER → 2018-02-17 | Outpatient (CLI) | payer OTHER | LOC: FIMAGING 09:43 | PROVIDERS: ATTEND Internal Medicine Hematology & Oncology | DX: Z12.31 Encounter for screening mammogram for malignant neoplasm of breast (principal); Z90.12 Acquired absence of left breast and nipple; Z85.3 Personal history of malignant neoplasm of breast ==